=== PATIENT | female | born 1965 | race Caucasian/White ===

== ENCOUNTER 2021-08-08 12:40 | Outpatient (CLI) | payer OTHER, SELFPAY ==
--- NOTE | ~2021-08-08 | DEXA_ITS ---
Bone Density Report Name: Tessa MELCHOR Age: 56 Sex: Female Ethnicity: White Date of : 1965 Indication: postmenopausal; height loss; Referring Provider: TIEN FISCHER Study: Bone densitometry was performed. Exam Date: August 08, 2021 Accession number: [id number] Bone Density: Region BMD T-score Z-score Classification AP Spine (L1-L4) 0.927 -1.1 0.1 Osteopenia Femoral Neck (Left) 0.730 -1.1 0.0 Osteopenia Total Hip (Left) 0.812 -1.1 -0.3 Osteopenia Total Hip Bilateral Avg 0.823 -1.0 -0.3 Osteopenia Femoral Neck (Right) 0.806 -0.4 0.7 Normal Total Hip (Right) 0.832 -0.9 -0.2 Normal World Health Organization criteria for BMD impression classify patients as: Normal (T-score at or above -1.0), Osteopenia (T-score between -1.0 and -2.5), or Osteoporosis (T-score at or below -2.5). 10-year Fracture Risk(1): Major Osteoporotic Fracture 6.3% Hip Fracture 0.3% Reported Risk Factors: [place] (), Neck BMD=0.730, BMI=25.9 (1) FRAX(R) Version 3.08. Fracture probability calculated for an untreated patient. Fracture probability may be lower if the patient has received treatment. Clinical Information Provided by Patient: Has used the following medications: Vitamin D Patient maximum height was 65 Menopause Age: 54 No regular weight bearing exercise Drinks caffeinated beverages Onset of menses at age 12 Number of children 0 Impression: The patient has low bone mass, based on the Total Spine T-score. The patient has an estimated ten-year risk of hip fracture of 0.3% and an estimated ten-year risk of major fracture of 6.3%, based on the WHO FRAX algorithm. Discussion: BONE DENSITY IS LOW AT ONE OR MORE SKELETAL SITES. This patient's lowest T-score is low at one or more skeletal sites. It meets the World Health Organization's (WHO) criteria for ?low bone mass? (T-score between -1.0 and -2.5). The patient's 10-year risk of fracture as calculated by FRAX is less than the threshold where pharmacological therapy is recommended by the National Osteoporosis Foundation (NOF). However, all treatment decisions require clinical judgment and consideration of individual patient factors, including patient preferences, comorbidities, previous drug use, risk factors not captured in the FRAX model (e.g., frailty, falls, vitamin D deficiency, increased bone turnover, interval significant decline in bone density) and possible under or overestimation of fracture risk by FRAX. The patient should follow a healthful lifestyle (good nutrition with adequate calcium and vitamin D, and appropriate weight-bearing exercise). Follow-Up: Consider repeating this study in 2 to 3 years to reassess this patient's status, or sooner if there is some new clinical indication. Reported by: KADY on 08/08/2021 1:05:00 PM.
== END 2021-08-08 12:41 | disposition home or self-care (01) ==
LOC: ANHIMG 12:42
PROVIDERS: PCP Family Medicine; Visit Provider Obstetrics & Gynecology Gynecology
DX: Z78.0 Asymptomatic menopausal state (principal); M85.89 Other specified disorders of bone density and structure, multiple sites
CPT/HCPCS: 77080

== ENCOUNTER → 2022-07-29 13:16 | Outpatient (CLI) | payer BC, SELFPAY ==
--- NOTE | ~2022-07-29 | US_ITS ---
Corrected Report Correction to Ordering Provider 07/30/2022 CAMPBELL This report was recreated on 07/30/2022. Original report was signed by Narciso Bah M.D. on 07/29/2022 13:57 CDT. EXAMINATION: US pelvic complete w TV DATE: 07/29/2022 13:47 INDICATION: Postmenopausal bleeding Comparison:No prior studies for comparison. TECHNIQUE: Multiple transabdominal and endovaginal sonographic images of the pelvis performed. FINDINGS: The uterus measures 5.9 x 3 x 3.7 cm. The endometrial complex measures 12 mm. The right ovary measures 2 x 1.4 x 1.4 cm and the left ovary measures 1.9 x 1.2 x 1.2 cm. There are small follicles in each ovary. Normal doppler signal in both ovaries. There is no free fluid in the pelvis. There are no abnormal masses seen on either side. IMPRESSION: 1. Thickened endomtrial complex. The differential diagnosis includes endometrial hyperplasia, polyp and carcinoma. Biopsy is recommended. Reviewed, dictated and finalized at location A. MTDD IMPRESSION: 1. Thickened endomtrial complex. The differential diagnosis includes endometria l hyperplasia, polyp and carcinoma. Biopsy is recommended.
== END ==
PROVIDERS: Visit Provider Obstetrics & Gynecology Gynecology
DX: N95.0 Postmenopausal bleeding (principal)
CPT/HCPCS: 76830; 76856

== ENCOUNTER 2022-08-14 15:41 | Outpatient (CLI) | payer BC, SELFPAY | END 2022-08-14 15:42 | disposition home or self-care (01) | PROVIDERS: Visit Provider Obstetrics & Gynecology Gynecology | DX: E55.9 Vitamin D deficiency, unspecified (principal) | CPT/HCPCS: 36415; 82306 ==

== ENCOUNTER 2022-11-03 00:29 | Day surgery (SDC) | payer BC, SELFPAY ==
[2022-10-17 09:53] VITALS: BMI 25.7
--- NOTE | 2022-10-17 09:58 | PC.NURSE ---
Report to the Outpatient Waiting Room, entrance under the green pavilion located off [facility], at time 1145 on date 11/03/22. Planned Procedure Time: 1345. Time changes happen often and if your time is changed the preop area will call you the afternoon before. - You and your visitor will be asked to self-screen and do not enter if you have any COVID symptoms. - Only one visitor is requested with a max of two and NO children visitors are allowed at this time. - The patient visitor may be requested to leave or wait in car when not with patient due to distancing restrictions. - A mask is REQUIRED within the hospital. Patients may have clear liquids (water, carbonated beverages, clear teas, apple juice) until 3 hours prior to surgery with a maximum of 20 ounces. - No food from midnight until time of surgery Take the following medications with a SIP of water the morning of surgery: NONE Medications to discontinue per physician: VITAMINS/SUPPLEMENTS Date to take last dose: 10/30/22 Please no make-up, nail latvian, hairspray, perfume, deodorant, or body powder the day of surgery. No jewelry (including any body piercings) or valuables the day of surgery, leave them at home. Please take a shower or bath the night before, or the morning of, surgery with an antibacterial soap. Wear comfortable, loose fitting clothing. - Jewelry must be removed prior to entering the operating room. Rings and piercings that are not removed may be cut off. - The hospital will not accept responsibility for valuables. - Please leave all valuables, including medications, at home the day of surgery. If you are going home after surgery, a licensed city driver must drive you home. - NO public transportation without another adult if you receive anesthesia. - We recommend that an adult stay with you for 24 hours following discharge. - We also recommend that you do not drive, make important decision, drink alcoholic beverages, or take any drugs that were not prescribed by your health care provider for at least 24 hours after your discharge time. Follow any additional instructions given to you from your surgeon. If you or anyone in your household have experienced Covid symptoms in the past week, please notify your surgeon or the nurse liaison at the phone number below for possible testing. Telephone instructions given to PT Aretha MELCHOR and asked if any additional questions and then verbalized understanding. Patient advised to call surgeon office or pre surgery nurse liaison [phone] if any additional questions.
--- NOTE | 2022-11-03 08:27 | P.HP_ITS ---
History of Present Illness History of Present Illness Consent: Risks, benefits, and alternatives have been discussed and questions answered. Patient agrees to proceed with procedure. Chief complaint: endometrial polyp Narrative: Tessa Quan is a 57 year old female postmenopausal. Patient underwent hysteroscopy in the office with findings of a large endometrial polyp. The polyp was unable to be removed in the office. Endometrial biopsy was benign. Is recommended to proceed with D&C hysteroscopy with resection of polyp. The risks of infection, bleeding, perforation, fluid imbalance, and possible pathology are reviewed. The patient voices understanding and agrees to proceed. Review of Systems Review of Systems: not repeated day of surgery; patient states no changes in status [facility] Past Medical History Medical History (Updated 11/03/22 @ 08:31 by Bethany Eng MD) Bulimia on and off throughout are alive Surgical History Surgical History (Updated 11/03/22 @ 08:31 by Bethany Eng MD) Breast implant status 1994 2017 History of hysteroscopy see history of present illness Spine injury 2000 Family History Family History Father Family history of type 2 diabetes mellitus Mother Family history of congestive heart failure Social History Social History Smoking status: Never smoker Second hand tobacco smoke exposure: No Alcohol intake: current Drinks per week: 2 Substance use: never Substance use type: does not use Living arrangements: with family Gender identity (if verbalized by the patient): Female Sexual Orientation (if Verbalized by the Patient): Straight or Heterosexual Spiritual care concerns: No Agree to blood products: Yes Meds Home Medications and Allergies Home Medications Medication Instructions Recorded Confirmed Type black cohosh 20 mg tablet 60 mg PO DAILY 08/10/20 10/17/22 History evening primrose oil 500 mg capsule 1,000 mg PO DAILY 08/10/20 10/17/22 History Allergies Allergy/AdvReac Type Severity Reaction Status Date / Time Sulfa (Sulfonamide Allergy Unknown Rash Verified 10/17/22 09:52 Antibiotics) Exam Const: General: healthy appearing and alert Orientation/consciousness: patient oriented x3 Resp: Effort & Inspection: normal respiratory effort GI: GI Palp: Yes Soft to palpation, No Tenderness to palpation present (GI) and No Palpable mass present : External Female Exam: normal external appearance Speculum Exam - Vagina: normal appearance of the vagina and normal vaginal discharge Speculum Exam - Cervix: normal appearance of the cervix Bimanual exam- vagina & uterus: uterine size normal and consistency normal Bimanual Exam- Adnexa, other: normal adnexae and No adnexal tenderness Neuro: General: patient oriented x3 Assessment and Plan Assessment and plan (1) Postmenopausal bleeding: Code(s): N95.0 - Postmenopausal bleeding Status: Acute Assessment and Plan: plan to proceed with hysteroscopy D&C and resection polyp
--- NOTE | 2022-11-03 08:27 | WPDHPUPDATE1 ---
History and Physical Update Update Date/Time: 11/03/22 08:27 History and Physical has been reviewed, including an updated exam of the patient. There are NO changes in the patient's condition. Risks, benefits, and alternatives have been discussed and questions answered. Patient agrees to proceed with procedure.
[2022-11-03 12:08] VITALS: BP 95/68; PULSE 85; RESP 16; TEMP 36.4; O2SAT 100
[2022-11-03] MEDS: LACTATED RINGERS 1,000 ML 30 ML IV CONT (12:13)
[2022-11-03] MEDS: ACETAMINOPHEN 500 MG TABLET 1000 MG PO (12:22)
--- NOTE | 2022-11-03 12:24 | WPDANESEPPF ---
Anes - Initial Pre Proc Eval Procedure: Operation Date: 11/03/22 13:45 Proposed Procedures p Hysteroscopy with Myosure - Bethany Eng MD Date/Time: 11/03/22 12:24 Surgeon: Bethany Eng MD Pre Op Diagnosis: endometrial polyp Patient Data Age: 57 Gender: F Height: 1.65 m Weight: 72.1 kg Last Vital Signs Temp 36.4 C L 11/03/22 12:08 Pulse 85 11/03/22 12:08 Resp 16 11/03/22 12:08 BP 95/68 L 11/03/22 12:08 Pulse Ox 100 11/03/22 12:08 O2 Del Method Room Air 11/03/22 12:08 Allergies Allergy/AdvReac Type Severity Reaction Status Date / Time Sulfa (Sulfonamide Allergy Unknown Rash Verified 11/03/22 12:03 Antibiotics) Home Medications Medication Instructions Recorded Confirmed Type black cohosh 20 mg tablet 60 mg PO DAILY 08/10/20 11/03/22 History evening primrose oil 500 mg capsule 1,000 mg PO DAILY 08/10/20 11/03/22 History Patient hx anesthesia problems: none Family hx anesthesia problems: none Results Review: All pre-operative results and documents have been reviewed as part of the pre-operative evaluation. [facility] Past Medical History Medical History Bulimia on and off throughout are alive Surgical History Surgical History Breast implant status 1994 2017 History of hysteroscopy see history of present illness Spine injury 2000 Family History Family History Father Family history of type 2 diabetes mellitus Mother Family history of congestive heart failure Social History Social History Smoking status: Never smoker Second hand tobacco smoke exposure: No Alcohol intake: current Drinks per week: 2 Substance use: never Substance use type: does not use Living arrangements: with family Gender identity (if verbalized by the patient): Female Sexual Orientation (if Verbalized by the Patient): Straight or Heterosexual Spiritual care concerns: No Agree to blood products: Yes Anes - Eval Final PreProcedure Day of Procedure 11/03/22 12:24 Patient weight: overweight Heart: regular rate and rhythm Lungs: clear to auscultation Airway: Mallampati scale class II Neurological: alert and oriented Last oral intake: >/= 8 hours ASA classification: II Emergent: no Anesthetic plan: proceed Anesthesia type and monitoring: general GIVS and standard monitoring Results Review: All pre-operative results and documents have been reviewed as part of the pre-operative evaluation. Informed Consent: The patient's anesthetic plan and its attendant risks and benefits were discussed with the patient/family/POA. Questions were solicited and answers provided to the satisfaction of the patient/family/POA.
[2022-11-03] MEDS: LIDOCAINE HCL 1% PF 30 ML VIAL 10 ML INFILTRATE (12:57)
[2022-11-03 13:10] VITALS: BP 109/67; PULSE 72; RESP 14; O2SAT 98
[2022-11-03 13:40] VITALS: BP 120/76; PULSE 70
[2022-11-03] MEDS: oxyCODONE HCL (*CRX) 5 MG TAB IR PO (14:06)
[2022-11-03 14:10] VITALS: BP 114/67; PULSE 64; RESP 18
[2022-11-03 14:25] VITALS: BP 103/62; PULSE 71; RESP 18
--- NOTE | 2022-11-10 08:08 | P.OP_ITS ---
Procedure Note - Detailed Date of Procedure 11/03/22 Pre-op Diagnosis endometrial polyp with postmenopausal bleeding Post-op Diagnosis Same Procedure Performed D&C hysteroscopy with resection polyp Surgeon Bethany Eng MD Anesthesia MAC and Local Findings large endometrial polyp with background atrophic endometrium Description of Procedure The patient was taken to the operating room and placed under anesthesia in the dorsal lithotomy position. She was prepped and draped in the usual sterile fashion. Anchorage speculum was placed in the vagina and the cervix grasped on the anterior lip with a tenaculum. The uterus is sounded and the hysteroscope placed. The above-stated findings were noted. The Aveta resection device is placed through the hysteroscope. The polyp was removed tired he under direct visualization. The hysteroscope was removed and the sharp curette used to curette the endometrium until a good uterine cry is noted in all areas. Minimal if any material is obtained consistent with the atrophic appearance. All instruments are removed. Sponge, needle, and instrument counts are correct per the OR staff. Patient was taken to recovery in stable condition. Estimated Blood Loss 5 Drains No Packing No Pathology Yes ( Endometrial curettings and shavings) Complications No immediate complications Condition Stable Disposition PACU
== END 2022-11-03 14:43 | disposition home or self-care (01) ==
PROVIDERS: Visit Provider Obstetrics & Gynecology Gynecology
PROC: 0U5B8ZZ Destruction of Endometrium, Via Natural or Artificial Opening Endoscopic (ICD-10-PCS; CPT 58563; principal; 2022-11-03 13:45)
DX: N95.0 Postmenopausal bleeding (principal); N84.0 Polyp of corpus uteri
CPT/HCPCS: 58558; 88305; A9270; J2704; J3010; J7120

== ENCOUNTER 2023-04-25 08:21 | Outpatient (CLI) | payer OTHER, SELFPAY ==
[2023-04-25 09:05] LABS: Hematocrit 45.9 % (37.0-47.0); Hemoglobin 15.3 g/dL (12.0-15.0); Mean Corpuscular HGB Conc 33.3 g/dl (32-36); Mean Corpuscular Hemoglobin 30.9 pg (26-34); Mean Corpuscular Volume 92.7 fl (80-100); Mean Platelet Volume 9.7 fl (7.4-10.4); Platelet Count Result 216 k/mm3 (150-375); Red Blood Count 4.95 M/mm3 (4.2-5.4); Red Cell Distribution Width 13.3 % (11.5-14.5); White Blood Count 4.2 K/mm3 (4.5-10.0)
[2023-04-25 09:12] LABS: Alanine Aminotransferase 30 U/L (6-35); Albumin Level 3.7 g/dL (3.5-5.1); Alkaline Phosphatase 71 U/L (38-126); Anion Gap 4 mmol/L (8-16); Aspartate Amino Transferase 30 U/L (14-36); Bilirubin,Total 0.7 mg/dL (0.2-1.3); Blood Urea Nitrogen 20 mg/dL (7-17); Calcium 8.8 mg/dL (8.4-10.2); Carbon Dioxide 29 mmol/L (22-30); Chloride 108 mmol/L (98-107); Cholesterol 238 mg/dL (0-200); Estimated Glomerular Filt Rate > 60; Glucose 88 mg/dL (65-110); HDL Direct 75 mg/dL; Sodium 141 mmol/L (137-145); Triglycerides 78 mg/dL (<150)
[2023-04-25 09:22] LABS: LDL Cholesterol Direct 108 mg/dL
[2023-04-25 09:30] LABS: Vitamin D 25 Hydroxy 74.9 ng/mL
[2023-04-25 10:03] LABS: Appearance Urine Clear (Clear); Bilirubin Urine Negative (Negative); Blood Urine Negative (Negative); Color Urine Yellow (Yellow); Glucose Urine UA Negative (Negative); Ketones Urine Negative (Negative); Leukocyte Esterase Ur Negative LEU/UL (NEGATIVE); Nitrate Urine Negative (Negative); Protein Urine Negative (Negative); Specific Grav Ur 1.014 (1.001-1.035); Urobilinogen Urine 0.2 mg/dL (<2.0); pH Urine 6.5 (5.0-9.0)
[2023-04-25 10:07] LABS: Add Urine Microscopic? NO
== END 2023-04-25 08:22 | disposition home or self-care (01) ==
PROVIDERS: PCP Family Medicine; Referring Provider Obstetrics & Gynecology Gynecology; Visit Provider Family Medicine
DX: Z00.00 Encounter for general adult medical examination without abnormal findings (principal); E78.5 Hyperlipidemia, unspecified; E55.9 Vitamin D deficiency, unspecified
CPT/HCPCS: 36415; 80053; 80061; 81003; 82306; 84443; 85027

== ENCOUNTER 2023-10-01 13:59 | Outpatient (CLI) | payer OTHER, SELFPAY ==
--- NOTE | ~2023-10-01 | DEXA_ITS ---
Bone Density Report Name: IGNACIO MELCHOR Age: 58 Sex: Female Ethnicity: White Date of : 1965 Indication: osteopenia; height loss; postmenopausal Referring Provider: TIEN FISCHER Study: Bone densitometry was performed. Exam Date: October 01, 2023 Accession number: [id number] Bone Density: Region BMD T-score Z-score Classification AP Spine(L1-L4) 0.930 -1.1 0.2 Osteopenia Femoral Neck (Left) 0.723 -1.1 0.1 Osteopenia Total Hip (Left) 0.809 -1.1 -0.2 Osteopenia Femoral Neck (Right) 0.768 -0.7 0.5 Normal Total Hip (Right) 0.839 -0.8 0.0 Normal Total Hip Mean 0.824 -1.0 -0.1 Normal World Health Organization criteria for BMD impression classify patients as: Normal (T-score at or above -1.0), Osteopenia (T-score between -1.0 and -2.5), or Osteoporosis (T-score at or below -2.5). 10-year Fracture Risk(1): Major Osteoporotic Fracture 6.8% Hip Fracture 0.4% Reported Risk Factors: [place] (), Neck BMD=0.723, BMI=25.9 (1) FRAX(R) Version 3.08. Fracture probability calculated for an untreated patient. Fracture probability may be lower if the patient has received treatment. Previous Exams: Region Exam Age BMD T-score BMD Change BMD Change Date g/cm2 vs Baseline vs Previous AP Spine (L1-L4) 10/01/2023 58 0.930 -1.1 0.003 (0.3%) 0.003 (0.3%) 08/08/2021 56 0.927 -1.1 Total Hip(Left) 10/01/2023 58 0.809 -1.1 -0.003 (-0.3%) -0.003 (-0.3%) 08/08/2021 56 0.812 -1.1 Total Hip(Right) 10/01/2023 58 0.839 -0.8 0.006 (0.8%) 0.006 (0.8%) 08/08/2021 56 0.832 -0.9 *Denotes significance at 95% confidence level, LSC for AP Spine = 0.022 g/cm2, LSC for Total Hip = 0.027 g/cm2 Clinical Information Provided by Patient: Has used the following medications: Calcium Patient maximum height was 65 Menopause Age: 54 Does not regularly consume dairy products Drinks caffeinated beverages Onset of menses at age 11 Number of children 0 Impression: The patient has low bone mass, based on the Total Spine T-score. The patient has an estimated ten-year risk of hip fracture of 0.4% and an estimated ten-year risk of major fracture of 6.8%, based on the WHO FRAX algorithm. No significant bone loss was observed. Discussion: BONE DENSITY IS LOW AT ONE OR MORE SKELETAL SITES. This patient's lowest T-score is low at one or more skeletal sites. It meets the World Health Organization's (WHO) criteria for ?low lalo
== END 2023-10-01 14:00 | disposition home or self-care (01) ==
PROVIDERS: PCP Family Medicine; Visit Provider Obstetrics & Gynecology Gynecology
DX: M85.89 Other specified disorders of bone density and structure, multiple sites (principal)
CPT/HCPCS: 77080

== ENCOUNTER 2024-05-13 07:21 | Outpatient (CLI) | payer OTHER, SELFPAY ==
[2024-05-13 08:24] LABS: Alanine Aminotransferase 32 U/L (6-35); Albumin Level 3.7 g/dL (3.5-5.1); Alkaline Phosphatase 82 U/L (38-126); Anion Gap 6 mmol/L (4-12); Aspartate Amino Transferase 36 U/L (14-36); Bilirubin,Total 0.5 mg/dL (0.2-1.3); Blood Urea Nitrogen 18 mg/dL (7-17); Calcium 8.7 mg/dL (8.4-10.2); Carbon Dioxide 29 mmol/L (22-30); Chloride 104 mmol/L (98-107); Cholesterol 221 mg/dL (0-200); Estimated Glomerular Filt Rate > 60; Glucose 90 mg/dL (65-110); HDL Direct 94 mg/dL; Hematocrit 44.9 % (37.0-47.0); Hemoglobin 14.6 g/dL (12.0-15.0); Mean Corpuscular HGB Conc 32.5 g/dl (32-36); Mean Corpuscular Hemoglobin 31.1 pg (26-34); Mean Corpuscular Volume 95.5 fl (80-100); Mean Platelet Volume 9.9 fl (7.4-10.4); Platelet Count Result 209 k/mm3 (150-375); Potassium 4.3 mmol/L (3.4-5.0); Red Cell Distribution Width 13.2 % (11.5-14.5); Sodium 139 mmol/L (137-145); Triglycerides 55 mg/dL (<150); White Blood Count 4.5 K/mm3 (4.5-10.0)
[2024-05-13 08:35] LABS: LDL Cholesterol Direct 103 mg/dL
[2024-05-13 09:54] LABS: Vitamin D 25 Hydroxy 57.5 ng/mL
[2024-05-13 13:48] LABS: Appearance Urine Clear (Clear); Bilirubin Urine Negative (Negative); Blood Urine Negative (Negative); Color Urine Yellow (Yellow); Glucose Urine UA Negative (Negative); Ketones Urine Negative (Negative); Leukocyte Esterase Ur Negative LEU/UL (Negative); Nitrate Urine Negative (Negative); Protein Urine Negative (Negative); Specific Grav Ur 1.011 (1.001-1.035); Urobilinogen Urine 0.2 mg/dL (<2.0); pH Urine 6.5 (5.0-9.0)
[2024-05-13 13:53] LABS: Add Urine Microscopic? NO
== END 2024-05-13 07:22 | disposition home or self-care (01) ==
PROVIDERS: PCP Family Medicine; Referring Provider Obstetrics & Gynecology Gynecology; Visit Provider Family Medicine
DX: Z00.00 Encounter for general adult medical examination without abnormal findings (principal); E55.9 Vitamin D deficiency, unspecified
CPT/HCPCS: 36415; 80053; 80061; 81003; 82306; 84443; 85027

== ENCOUNTER 2024-08-20 05:23 | Emergency (ER) | payer OTHER, SELFPAY ==
--- NOTE | ~2024-08-20 | CT_ITS ---
EXAMINATION: CTA brain carotid DATE: 08/20/2024 06:48 INDICATION: Diplopia. TECHNIQUE: Computed tomographic angiography (CTA) of the head was performed without and with 100 mL O [id number] intravenous contrast. CTA of the neck was performed with intravenous contrast. Automated exposure control and iterative reconstruction technique were employed. The dose-length product was 1 710.82 mGy-cm. Maximum intensity projection and volume rendered 3D-reconstructions were created by ramos jha technologist on a separate workstation. COMPARISON: None. FINDINGS: HEAD CTA: There is no intracranial hemorrhage, acute infarction, or abnormal intracranial mass lesion . The ventricles are normal in size. There is mild mucosal thickening in the ethmoid sinuses. The mas toid air cells are normal. The orbits are normal. Right vertebral artery is dominant. There is no sig nificant stenosis of basilar artery or the posterior cerebral arteries. The posterior communicating a rteries are normal. There is no significant stenosis of the intracranial internal carotid arteries or anterior or middle cerebral arteries. Anterior communicating artery is normal. There is no aneurysm. NECK CTA: There are nodules in the thyroid measuring up to 12 mm, likely not clinically significant. There are no pathologically enlarged lymph nodes. There is no significant stenosis of the vertebral a rteries. There is no significant plaque in the proximal internal carotid. There is 0% stenosis of the proximal right internal carotid artery relative to normal distal artery lumen diameter (NASCET crite nikki). There is 0% stenosis of the proximal left internal carotid artery relative to normal distal art chelsie lumen diameter. There is severe cervical spondylosis. IMPRESSION: 1. Normal brain. No aneurysm or significant intracranial arterial stenosis. 2. 0% stenosis of the proximal internal carotid arteries relative to normal distal artery lumen diame ters (NASCET criteria). Reviewed, dictated and finalized at location A. IMPRESSION: 1. Normal brain. No aneurysm or significant intracranial arterial stenosis. 2. 0% stenosis of the proximal internal carotid arteries relative to normal dis chiquis artery lumen diameters (NASCET criteria).
[2024-08-20 05:33] VITALS: BP 110/69; PULSE 67; RESP 14; TEMP 36.4; O2SAT 98
--- NOTE | 2024-08-20 05:51 | ECG_ITS ---
Test Date: 2024-08-20 06:06:07 Measurements Intervals [place] Rate: 61 P: 29 WA: 123 QRS: 12 QRSD: 87 T: 35 QT: 411 QTc: 417 Interpretive Statements SINUS RHYTHM LOW QRS VOLTAGE IN PRECORDIAL LEADS [QRS DEFLECTION < 1.0 mV IN CHEST LEADS] NONSPECIFIC T-WAVE ABNORMALITY ABNORMAL ECG No previous ECG available for comparison Electronically Signed On 08-20-2024 13:14:35 CDT by Migue Jernigan M.D.
[2024-08-20 06:24] LABS: Add Urine Microscopic? YES; Appearance Urine Turbid (Clear); Bacteria Urine 4+ /hpf; Bilirubin Urine Negative (Negative); Blood Urine Negative (Negative); Color Urine Yellow (Yellow); Glucose Urine UA Negative (Negative); Ketones Urine Negative (Negative); Leukocyte Esterase Ur 2+ LEU/UL (Negative); Nitrate Urine Negative (Negative); Non Pathogenic Casts 0-2; Protein Urine Trace mg/dL (Negative); RBC Urine 0-2 /hpf (0-2); Specific Grav Ur 1.016 (1.001-1.035); Squamous Epithelial Cell Urine Many /hpf (Few); Urobilinogen Urine 0.2 mg/dL (<2.0); WBC Urine 21-50 /hpf (0-3)
[2024-08-20 06:25] LABS: Basophils Percent Auto 0.6 % (0.2-1.2); Eosinophils Absolute Auto 0.1 K/mm3 (0-0.3); Hematocrit 46.3 % (37.0-47.0); Hemoglobin 15.5 g/dL (12.0-15.0); Immature Granulocyte Absolute 0.01 K/mm3 (0.00-0.031); Immature Granulocyte Percent A 0.2 % (0-0.5); Lymphocytes Absolute Auto 2.28 K/mm3 (0.9-3.2); Lymphocytes Percent Auto 44.7 % (18.3-44.2); Mean Corpuscular HGB Conc 33.5 g/dl (32-36); Mean Corpuscular Volume 95.5 fl (80-100); Mean Platelet Volume 9.7 fl (7.4-10.4); Monocytes Absolute Auto 0.4 K/mm3 (0.1-0.6); Monocytes Percent Auto 7.3 % (2.6-8.5); Neutrophils Absolute Auto 2.3 K/mm3 (1.3-6.7); Neutrophils Percent Auto 45.2 % (45.5-73.1); Platelet Count Result 220 k/mm3 (150-375); Red Blood Count 4.85 M/mm3 (4.2-5.4); White Blood Count 5.1 K/mm3 (4.5-10.0)
[2024-08-20 06:29] LABS: Alanine Aminotransferase 43 U/L (6-35); Albumin Level 3.8 g/dL (3.5-5.1); Alkaline Phosphatase 80 U/L (38-126); Anion Gap 7 mmol/L (4-12); Aspartate Amino Transferase 37 U/L (14-36); Bilirubin,Total 0.6 mg/dL (0.2-1.3); Blood Urea Nitrogen 16 mg/dL (7-17); Calcium 8.9 mg/dL (8.4-10.2); Carbon Dioxide 30 mmol/L (22-30); Chloride 105 mmol/L (98-107); Estimated CRCL calculation 67 ml/min; Estimated Glomerular Filt Rate > 60; Glucose 94 mg/dL (65-110); Magnesium 2.2 mg/dL (1.6-2.3); Potassium 4.3 mmol/L (3.4-5.0); Sodium 142 mmol/L (137-145)
--- NOTE | 2024-08-20 06:46 | ED_ITS ---
HPI - General Adult General Chief complaint: Eye Problems <Kamron Chew MD - Last Filed: 08/20/24 06:49> Stated complaint: double vision <Kamron Chew MD - Last Filed: 08/20/24 06:49> Time Seen by Provider: 08/20/24 05:51 <Kamron Chew MD - Last Filed: 08/20/24 06:49> History of Present Illness HPI narrative: Patient 59-year-old female presents emergency department chief complaint of double vision. The patient reports last 36-48 hours she has been having episodes where her vision is double worse whenever she looks to the left a reports that it has improved whenever she looks up down or to the right. The patient reports no trauma denies fever denies headache reports that she has had no weakness in arms or legs denies dysarthria patient reports no prior history of CVA no prior history of episodes like this denies rash <Kamron Chew MD - Last Filed: 08/20/24 06:49> Related Data Home medications: Home Medications Medication Instructions Recorded Confirmed black cohosh 20 mg tablet 60 mg PO DAILY 08/10/20 04/25/24 evening primrose oil 500 mg capsule 1,000 mg PO DAILY 08/10/20 04/25/24 <Kamron Chew MD - Last Filed: 08/20/24 06:49> Allergies/adverse reactions: Allergies Allergy/AdvReac Type Severity Reaction Status Date / Time Sulfa (Sulfonamide Allergy Unknown Rash Verified 08/20/24 05:24 Antibiotics) <Kamron Chew MD - Last Filed: 08/20/24 06:49> Review of Systems Review of Systems: A 10 system review of systems was completed on the patient and is negative except for what is stated in the HPI. Nursing and ancillary documentation was reviewed. <Kamron Chew MD - Last Filed: 08/20/24 06:49> PMFSH Past Medical History Medical History: Medical History Bulimia on and off throughout are alive Osteopenia <Kamron Chew MD - Last Filed: 08/20/24 06:49> Surgical History Surgical History: Surgical History Breast implant status 1994 2017 History of hysteroscopy see history of present illness Spine injury w/ lumbar fusion, L5 discectomy 2000 <Kamron Chew MD - Last Filed: 08/20/24 06:49> Family History Family History: Family History Father Family history of type 2 diabetes mellitus Malignant neoplasm of prostate Mother Family history of congestive heart failure <Kamron Chew MD - Last Filed: 08/20/24 06:49> Social History Social History: Social History Smoking status: Never smoker Second hand tobacco smoke exposure: No Alcohol intake: never Substance use: never Substance use type: does not use Living arrangements: with family Occupation/Education: occupation Gender identity (if verbalized by the patient): Female Sexual Orientation (if Verbalized by the Patient): Straight or Heterosexual Spiritual care concerns: No Agree to blood products: Yes <Kamron Chew MD - Last Filed: 08/20/24 06:49> Exam Narrative: GENERAL: Well-appearing, well-nourished, and in no acute distress. HEAD: Normocephalic, atraumatic. EYES: PERRLA and EOMI. Intra-ocular pressure right 21 intra-ocular pressure left 16 double vision exacerbated by leftward eye gaze ENT: Nares clear, no rhinorrhea or epistaxis. Mucous membranes moist. NECK: Supple. CHEST: Clear to auscultation. No respiratory distress. HEART: Regular rate and rhythm. No murmur heard. Normal peripheral pulses. ABDOMEN: Soft, nontender, nondistended, normal active bowel sounds. EXTREMITIES: Normal range of motion. No edema. SKIN: Warm, dry, no rash. NEURO: No focal deficits. Alert and oriented x3. PSYCH: Normal mood and affect. <Kamron Chew MD - Last Filed: 08/20/24 06:49> Course Course Emergency Course: Patient resting comfortably. I have been and re-evaluate the patient. She is neurologically intact with the exception of double vision when she looks left side. She is in no distress. I have discussed her normal blood work. We have discussed that her urinalysis shows evidence of infection. I have also discussed the CTA of the head and neck. There is no evidence of infarction and no stenosis. Discussed that she still may have a stroke that we cannot see on CT scan I would like to admit her for an MRI and possible stroke evaluation. Patient does not wish stand hospital though she knows it is our recommendation. She would like to call her PCP on Thursday. I have given her strict return 1st cautions and I have recommended that she take baby aspirin daily. <Felix Mack MD - Last Filed: 08/20/24 07:58> Vital Signs Vital signs: Vital Signs Temperature 97.6 F 08/20/24 05:33 Pulse Rate 67 08/20/24 05:33 Respiratory Rate 14 08/20/24 05:33 Blood Pressure 110/69 08/20/24 05:33 Pulse Oximetry 98 08/20/24 05:33 Oxygen Delivery Room Air 08/20/24 05:33 Temperature 97.6 F 08/20/24 05:33 Pulse Rate 67 08/20/24 05:33 Respiratory Rate 14 08/20/24 05:33 Blood Pressure 110/69 08/20/24 05:33 Pulse Oximetry 98 08/20/24 05:33 Oxygen Delivery Room Air 08/20/24 05:33 <Kamron Chew MD - Last Filed: 08/20/24 06:49> Vital Signs Temperature 97.6 F 08/20/24 05:33 Pulse Rate 67 08/20/24 05:33 Respiratory Rate 14 08/20/24 05:33 Blood Pressure 110/69 08/20/24 05:33 Pulse Oximetry 98 08/20/24 05:33 Oxygen Delivery Room Air 08/20/24 05:33 Temperature 97.6 F 08/20/24 05:33 Pulse Rate 67 08/20/24 05:33 Respiratory Rate 14 08/20/24 05:33 Blood Pressure 110/69 08/20/24 05:33 Pulse Oximetry 98 08/20/24 05:33 Oxygen Delivery Room Air 08/20/24 05:33 <Felix Mack MD - Last Filed: 08/20/24 07:58> Medical Decision Making MDM Narrative Medical decision making narrative: Differential diagnosis includes ocular nerve palsy, intracranial hemorrhage, CVA, demyelinating disorder, electrolyte abnormality, acute angle closure glaucoma, The patient has normal intra-ocular pressures CTA head and neck was ordered on the patient laboratory studies were also ordered an EKG was ordered. EKG showed no acute ischemic disease, no evidence of dysrhythmia The laboratory studies did show evidence of urinary tract infection with 21-50 white blood cells in the urine and 4+ bacteria <Kamron Chew MD - Last Filed: 08/20/24 06:49> Vital Signs Vital Signs: Vital Signs Temperature 97.6 F 08/20/24 05:33 Pulse Rate 67 08/20/24 05:33 Respiratory Rate 14 08/20/24 05:33 Blood Pressure 110/69 08/20/24 05:33 Pulse Oximetry 98 08/20/24 05:33 Oxygen Delivery Room Air 08/20/24 05:33 Temperature 97.6 F 08/20/24 05:33 Pulse Rate 67 08/20/24 05:33 Respiratory Rate 14 08/20/24 05:33 Blood Pressure 110/69 08/20/24 05:33 Pulse Oximetry 98 08/20/24 05:33 Oxygen Delivery Room Air 08/20/24 05:33 <Kamron Chew MD - Last Filed: 08/20/24 06:49> Vital Signs Temperature 97.6 F 08/20/24 05:33 Pulse Rate 67 08/20/24 05:33 Respiratory Rate 14 08/20/24 05:33 Blood Pressure 110/69 08/20/24 05:33 Pulse Oximetry 98 08/20/24 05:33 Oxygen Delivery Room Air 08/20/24 05:33 Temperature 97.6 F 08/20/24 05:33 Pulse Rate 67 08/20/24 05:33 Respiratory Rate 14 08/20/24 05:33 Blood Pressure 110/69 08/20/24 05:33 Pulse Oximetry 98 08/20/24 05:33 Oxygen Delivery Room Air 08/20/24 05:33 <Felix Mack MD - Last Filed: 08/20/24 07:58> Lab Data Result diagrams: 08/20/24 06:10 08/20/24 06:10 <Kamron Chew MD - Last Filed: 08/20/24 06:49> Labs: Lab Results 08/20/24 Range/Units 06:10 WBC 5.1 (4.5-10.0) K/mm3 RBC 4.85 (4.2-5.4) M/mm3 Hgb 15.5 H (12.0-15.0) g/dL Hct 46.3 (37.0-47.0) % MCV 95.5 (80-100) fl MCH 32.0 (26-34) pg MCHC 33.5 (32-36) g/dl RDW 13.0 (11.5-14.5) % Plt Count 220 (150-375) k/mm3 MPV 9.7 (7.4-10.4) fl Immature Gran % (Auto) 0.2 (0-0.5) % Neut % (Auto) 45.2 L (45.5-73.1) % Lymph % (Auto) 44.7 H (18.3-44.2) % [place] % (Auto) 7.3 (2.6-8.5) % Eos % (Auto) 2.0 (0-4.4) % Baso % (Auto) 0.6 (0.2-1.2) % Lymph # (Auto) 2.28 (0.9-3.2) K/mm3 [place] # (Auto) 0.4 (0.1-0.6) K/mm3 Eos # (Auto) 0.1 (0-0.3) K/mm3 Baso # (Auto) 0.0 (0.0-0.1) K/mm3 Abs Immat Gran (auto) 0.01 (0.00-0.031) K/mm3 Absolute Neuts (auto) 2.3 (1.3-6.7) K/mm3 Absolute Nucleated RBC 0.000 (0.0-0.012) K/mm3 Nucleated RBC % 0.0 (0.0-0.2) % Sodium 142 (137-145) mmol/L Potassium 4.3 (3.4-5.0) mmol/L Chloride 105 (98-107) mmol/L Carbon Dioxide 30 (22-30) mmol/L Anion Gap 7 (4-12) mmol/L BUN 16 (7-17) mg/dL Creatinine 0.80 (0.7-1.0) mg/dL Estim Creat Clear Calc 67 ml/min Estimated GFR > 60 (59 - ) Glucose 94 (65-110) mg/dL Calcium 8.9 (8.4-10.2) mg/dL Magnesium 2.2 (1.6-2.3) mg/dL Total Bilirubin 0.6 (0.2-1.3) mg/dL AST 37 H (14-36) U/L ALT 43 H (6-35) U/L Alkaline Phosphatase 80 (38-126) U/L Troponin I Pending Total Protein 7.0 (6.3-8.2) g/dL Albumin 3.8 (3.5-5.1) g/dL Urine Color Yellow (Yellow) Urine Appearance Turbid H (Clear) Urine pH 7.0 (5.0-9.0) Ur Specific [place] 1.016 (1.001-1.035) Urine Protein Trace (Negative) mg/dL Urine Glucose (UA) Negative (Negative) mg/dL Urine Ketones Negative (Negative) mg/dL Ur Blood (Man) Negative (Negative) Urine Nitrate Negative (Negative) Urine Bilirubin Negative (Negative) Urine Urobilinogen 0.2 (<2.0) mg/dL Leukocyte Esterase Rfl 2+ H (Negative) [place]/UL Urine RBC 0-2 (0-2) /hpf Urine WBC 21-50 H (0-3) /hpf Ur Squamous Epith Cells Many H (Few) /hpf Urine Bacteria 4+ H /hpf Urine Casts 0-2 <Kamron Chew MD - Last Filed: 08/20/24 06:49> Lab Results 08/20/24 Range/Units 06:10 WBC 5.1 (4.5-10.0) K/mm3 RBC 4.85 (4.2-5.4) M/mm3 Hgb 15.5 H (12.0-15.0) g/dL Hct 46.3 (37.0-47.0) % MCV 95.5 (80-100) fl MCH 32.0 (26-34) pg MCHC 33.5 (32-36) g/dl RDW 13.0 (11.5-14.5) % Plt Count 220 (150-375) k/mm3 MPV 9.7 (7.4-10.4) fl Immature Gran % (Auto) 0.2 (0-0.5) % Neut % (Auto) 45.2 L (45.5-73.1) % Lymph % (Auto) 44.7 H (18.3-44.2) % [place] % (Auto) 7.3 (2.6-8.5) % Eos % (Auto) 2.0 (0-4.4) % Baso % (Auto) 0.6 (0.2-1.2) % Lymph # (Auto) 2.28 (0.9-3.2) K/mm3 [place] # (Auto) 0.4 (0.1-0.6) K/mm3 Eos # (Auto) 0.1 (0-0.3) K/mm3 Baso # (Auto) 0.0 (0.0-0.1) K/mm3 Abs Immat Gran (auto) 0.01 (0.00-0.031) K/mm3 Absolute Neuts (auto) 2.3 (1.3-6.7) K/mm3 Absolute Nucleated RBC 0.000 (0.0-0.012) K/mm3 Nucleated RBC % 0.0 (0.0-0.2) % Sodium 142 (137-145) mmol/L Potassium 4.3 (3.4-5.0) mmol/L Chloride 105 (98-107) mmol/L Carbon Dioxide 30 (22-30) mmol/L Anion Gap 7 (4-12) mmol/L BUN 16 (7-17) mg/dL Creatinine 0.80 (0.7-1.0) mg/dL Estim Creat Clear Calc 67 ml/min Estimated GFR > 60 (59 - ) Glucose 94 (65-110) mg/dL Calcium 8.9 (8.4-10.2) mg/dL Magnesium 2.2 (1.6-2.3) mg/dL Total Bilirubin 0.6 (0.2-1.3) mg/dL AST 37 H (14-36) U/L ALT 43 H (6-35) U/L Alkaline Phosphatase 80 (38-126) U/L Troponin I Pending Total Protein 7.0 (6.3-8.2) g/dL Albumin 3.8 (3.5-5.1) g/dL Urine Color Yellow (Yellow) Urine Appearance Turbid H (Clear) Urine pH 7.0 (5.0-9.0) Ur Specific [place] 1.016 (1.001-1.035) Urine Protein Trace (Negative) mg/dL Urine Glucose (UA) Negative (Negative) mg/dL Urine Ketones Negative (Negative) mg/dL Ur Blood (Man) Negative (Negative) Urine Nitrate Negative (Negative) Urine Bilirubin Negative (Negative) Urine Urobilinogen 0.2 (<2.0) mg/dL Leukocyte Esterase Rfl 2+ H (Negative) [place]/UL Urine RBC 0-2 (0-2) /hpf Urine WBC 21-50 H (0-3) /hpf Ur Squamous Epith Cells Many H (Few) /hpf Urine Bacteria 4+ H /hpf Urine Casts 0-2 <Felix Mack MD - Last Filed: 08/20/24 07:58> Discharge Plan Discharge Clinical Impression: Diplopia <Kamron Chew MD - Last Filed: 08/20/24 06:49> Patient Disposition: Home, Self-Care <Kamron Chew MD - Last Filed: 08/20/24 06:49> Condition: Stable <Kamron Chew MD - Last Filed: 08/20/24 06:49> Instructions: Diplopia (ED) <Kamron Chew MD - Last Filed: 08/20/24 06:49> Additional Instructions: It was recommended that he be admitted to the hospital to evaluate your brain for possible stroke with an MRI. If you change your mind please return to the ER. Additionally return to the ER if you develop new symptoms such as slurred speech, facial weakness, weakness in arm or leg, or you develop any additional concerns. It is recommended you take aspirin 81 mg daily into the can be seen by your primary care doctor to discuss a treatment plan. Additionally you were found to have a mild urinary tract infection for which you will be given antibiotics. <Kamron Chew MD - Last Filed: 08/20/24 06:49> Prescriptions: New aspirin 81 mg tablet,delayed release (DR/EC) 81 mg PO DAILY Qty: 14 0RF cephalexin 500 mg capsule 500 mg PO Q12H Qty: 10 0RF No Action black cohosh 20 mg tablet 60 mg PO DAILY evening primrose oil 500 mg capsule 1,000 mg PO DAILY Rx Instructions: give with meal/snack <Kamron Chew MD - Last Filed: 08/20/24 06:49> Follow-up/Referrals: Gallo Santoyo MD [Primary Care Provider] - 3 Days <Kamron Chew MD - Last Filed: 08/20/24 06:49>
[2024-08-20 07:53] LABS: Troponin I < 0.012 ng/mL (0.000-0.034)
[2024-08-20 08:02] VITALS: BP 112/74; PULSE 70; RESP 18; TEMP 36.6; O2SAT 98
== END 2024-08-20 08:04 | disposition home or self-care (01) ==
PROVIDERS: Emergency Provider Emergency Medicine; PCP Family Medicine
DX: H53.2 Diplopia (principal); N39.0 Urinary tract infection, site not specified; M85.80 Other specified disorders of bone density and structure, unspecified site; Z98.1 Arthrodesis status
CPT/HCPCS: 36415; 70496; 70498; 80053; 81001; 83735; 84484; 85025; 87086; 93005; 99284; Q9967

== ENCOUNTER 2024-09-09 11:31 | Outpatient (CLI) | payer OTHER, SELFPAY ==
--- NOTE | ~2024-09-09 | MR_ITS ---
EXAMINATION: MR brain/brain stem wo/w con DATE: 09/09/2024 12:05 INDICATION: Diplopia. TECHNIQUE: Magnetic resonance imaging (MRI) of the brain and brainstem was performed without and with 15 mL MultiHance intravenous contrast. COMPARISON: Head CT 08/20/2024 FINDINGS: There are scattered areas of nonspecific increased T2-weighted signal intensity in the cere bral white matter, which is within normal limits for the patient's age. There is no intracranial hemo rrhage, acute infarction, or abnormal intracranial mass lesion. The ventricles are normal in size. Th e orbits are normal. The paranasal sinuses are clear. The mastoid air cells are normal. IMPRESSION: 1. Normal aging brain. Reviewed, dictated and finalized at location A. R ADVISER IMPRESSION: 1. Normal aging brain.
== END 2024-09-09 11:32 | disposition home or self-care (01) ==
LOC: MICIMG 11:32
PROVIDERS: PCP Family Medicine; Visit Provider Family Medicine
DX: H53.2 Diplopia (principal)
CPT/HCPCS: 70553; A9577

== ENCOUNTER 2024-09-18 10:39 | Emergency (ER) | payer OTHER, SELFPAY ==
[2024-09-18 10:41] VITALS: BP 120/77; PULSE 77; RESP 14; TEMP 36.5; O2SAT 97
--- NOTE | 2024-09-18 12:05 | ED.GENADULT ---
HPI - General Adult General Chief complaint: Eye Problems Stated complaint: swelling and redness R eye Time Seen by Provider: 09/18/24 11:13 History of Present Illness HPI narrative: Patient is a 59-year-old female who presents ER with concerns of right facial swelling with and rash. Ongoing intermittently over last couple weeks. Has had multiple problems since having diplopia last month. She has had an MRI that showed no acute lesions. Her scientific programmer analyst felt she has a nerve palsy from a viral syndrome. She did get some ocular steroid and antibiotic. She has had persistent injection of the sclera of her eye. Reports it is occasionally itchy. No foreign body sensation. No change in vision. Patient does have a fine rash to the face. She reports she put sunscreen on every other day. Patient had previously been on acyclovir for or ocular palsy. Related Data Home Medications Medication Instructions Recorded Confirmed black cohosh 20 mg tablet 60 mg PO DAILY 08/10/20 08/24/24 evening primrose oil 500 mg capsule 1,000 mg PO DAILY 08/10/20 08/24/24 Allergies Allergy/AdvReac Type Severity Reaction Status Date / Time Sulfa (Sulfonamide Allergy Unknown Rash Verified 09/18/24 10:40 Antibiotics) Review of Systems Review of Systems: All systems reviewed & are unremarkable except as noted in HPI and below Constitutional: Constitutional: Reports no additional constitutional complaints Eyes: Eyes: Denies change in vision and Denies photophobia Comments: Right eye injection ENT: Reports system reviewed and no additional complaints, except as documented Cardiovascular: Cardiovascular: Reports no additional cardiovascular complaints Respiratory: Respiratory: Reports no additional respiratory complaints [facility] Past Medical History Medical History Bulimia on and off throughout are alive Osteopenia Surgical History Surgical History Breast implant status 1994 2017 History of hysteroscopy see history of present illness Spine injury w/ lumbar fusion, L5 discectomy 2000 Family History Family History Father Family history of type 2 diabetes mellitus Malignant neoplasm of prostate Mother Family history of congestive heart failure Social History Social History (Reviewed 08/24/24 @ 15:38 by SERAFIN Kramer Smoking status: Never smoker Second hand tobacco smoke exposure: No Alcohol intake: never Substance use: never Substance use type: does not use Living arrangements: with family Occupation/Education: occupation Gender identity (if verbalized by the patient): Female Sexual Orientation (if Verbalized by the Patient): Straight or Heterosexual Spiritual care concerns: No Agree to blood products: Yes Exam Narrative: GENERAL: Well-appearing, well-nourished, and in no acute distress. HEAD: Normocephalic, atraumatic. EYES: PERRL and EOMI. chemosis of the sclera of the right eye with scleral injection. Fluorescein staining magnification revealed no foreign body or corneal abrasion. Visual acuities 20/40 right eye and 20/30 left eye. ENT: Mucous membranes moist. No posterior auricular lymphadenopathy. NECK: Supple. No lymphadenopathy of the anterior or posterior cervical chain. CHEST: Clear to auscultation. No respiratory distress. HEART: Regular rate and rhythm. Normal peripheral pulses. EXTREMITIES: Normal range of motion. No edema. SKIN: Warm, dry, Fine maculopapular rash of the forehead /cheeks and nose. NEURO: Alert and oriented x3. Course Course Emergency Course: Patient has what appears to be contact dermatitis to face. Will place on Medrol Dosepak and discontinue her by daily facial cream. Follow-up with PCP. Vital Signs Vital signs: Vital Signs Temperature 97.7 F 09/18/24 10:41 Pulse Rate 77 09/18/24 10:41 Respiratory Rate 14 09/18/24 10:41 Blood Pressure 120/77 09/18/24 10:41 Pulse Oximetry 97 09/18/24 10:41 Oxygen Delivery Room Air 09/18/24 10:41 Temperature 97.7 F 09/18/24 10:41 Pulse Rate 77 09/18/24 10:41 Respiratory Rate 14 09/18/24 10:41 Blood Pressure 120/77 09/18/24 10:41 Pulse Oximetry 97 09/18/24 10:41 Oxygen Delivery Room Air 09/18/24 10:41 Medical Decision Making Vital Signs Vital Signs: Vital Signs Temperature 97.7 F 09/18/24 10:41 Pulse Rate 77 09/18/24 10:41 Respiratory Rate 14 09/18/24 10:41 Blood Pressure 120/77 09/18/24 10:41 Pulse Oximetry 97 09/18/24 10:41 Oxygen Delivery Room Air 09/18/24 10:41 Temperature 97.7 F 09/18/24 10:41 Pulse Rate 77 09/18/24 10:41 Respiratory Rate 14 09/18/24 10:41 Blood Pressure 120/77 09/18/24 10:41 Pulse Oximetry 97 09/18/24 10:41 Oxygen Delivery Room Air 09/18/24 10:41 Discharge Plan Discharge Clinical Impression: Contact dermatitis, Chemosis of right conjunctiva Patient Disposition: Home, Self-Care Condition: Stable Instructions: Contact Dermatitis (ED) Additional Instructions: Return ER if you cannot see, you have fever 100.4? F, you cannot swallow, you have additional concerns. Prescriptions: New methylprednisolone [Medrol (Azar)] 4 mg tablets,dose pack See Rx Instructions .ROUTE .COMPLEX Qty: 21 0RF Rx Instructions: for 6 days No Action black cohosh 20 mg tablet 60 mg PO DAILY evening primrose oil 500 mg capsule 1,000 mg PO DAILY Rx Instructions: give with meal/snack aspirin 81 mg tablet,delayed release (DR/EC) 81 mg PO DAILY Qty: 14 0RF cephalexin 500 mg capsule 500 mg PO Q12H Qty: 10 0RF Follow-up/Referrals: Gallo Santoyo MD [Primary Care Provider] - 1 Week
== END 2024-09-18 12:22 | disposition home or self-care (01) ==
PROVIDERS: Emergency Provider Emergency Medicine; PCP Family Medicine
DX: L25.9 Unspecified contact dermatitis, unspecified cause (principal); H11.421 Conjunctival edema, right eye; M85.80 Other specified disorders of bone density and structure, unspecified site
CPT/HCPCS: 99283; A9270

== ENCOUNTER 2024-09-21 08:06 | Outpatient (CLI) | payer OTHER, SELFPAY ==
--- NOTE | ~2024-09-21 | US_ITS ---
EXAMINATION: US thyroid DATE: 09/21/2024 08:43 INDICATION: Enlarged thyroid. TECHNIQUE: Multiple ultrasound images of the thyroid were obtained. COMPARISON: None. FINDINGS: The right thyroid lobe measures 5.8 x 2.3 x 2.2 cm. The left thyroid lobe measures 5.7 x 2.2 x 2.5 c m. In the left thyroid lobe, there is a 2.0 cm solid, hyperechoic, wider than tall nodule with ill-d efined margin without echogenic foci (TI-RADS TR3). In the left thyroid lobe, there is a 1.5 cm solid , hyperechoic, wider than tall nodule with smooth margin without echogenic foci (TR3). In the right t hyroid lobe, there is a 1.6 cm solid, hypoechoic, wider than tall nodule with irregular margin withou t echogenic foci (TR4). In the right thyroid lobe, there are 9 mm and 7 mm solid, hyperechoic, wider than tall nodules with ill-defined margin without echogenic foci (TR3). IMPRESSION: 1. Multinodular goiter. Ultrasound-guided fine needle aspiration of the 1.6 cm right thyroid nodule i s recommended. Reviewed, dictated and finalized at location A. HEADLIGHT MECHANIC IMPRESSION: 1. Multinodular goiter. Ultrasound-guided fine needle aspiration of the 1.6 cm right thyroid nodule is recommended.
== END 2024-09-21 08:07 | disposition home or self-care (01) ==
LOC: MICIMG 08:07
PROVIDERS: PCP Family Medicine; Visit Provider Nurse Practitioner
DX: E04.2 Nontoxic multinodular goiter (principal)
CPT/HCPCS: 76536

== ENCOUNTER 2024-10-12 10:24 | Outpatient (CLI) | payer OTHER, SELFPAY ==
--- NOTE | ~2024-10-12 | US_ITS ---
EXAMINATION: US FNA w image guidance DATE: 10/12/2024 11:16 INDICATION: Right thyroid nodule TECHNIQUE: A time-out was performed to verify the patient's name, date of , and procedure to be performed . The procedure and its benefits and risks were discussed with the patient. Risks specifically discus sed included bleeding and infection. The patient understood the risks and agreed to proceed. The neck was prepped and draped in the usual sterile manner. 4 mL 1% lidocaine was used for local anesthesia . 6 passes were made with a 25G needle into the lesion. Appropriate needle location was documented with continuous sonographic guidance. A sterile bandage was applied. There were no immediate compli cations. FINDINGS: Grayscale ultrasound images demonstrate biopsy needles advanced into the 1.6 cm solid hypoechoic TI R ADS 4 right thyroid nodule of concern. IMPRESSION: 1. Successful ultrasound-guided fine needle aspiration of the TI RADS 4 right thyroid nodule of conc corrina. Reviewed, dictated and finalized at location A. ISHING EDITOR IMPRESSION: 1. Successful ultrasound-guided fine needle aspiration of the TI RADS 4 right thyroid nodule of concern.
== END 2024-10-12 10:25 | disposition home or self-care (01) ==
PROVIDERS: PCP Family Medicine; Visit Provider Physician Assistant Medical
DX: E04.1 Nontoxic single thyroid nodule (principal); E04.2 Nontoxic multinodular goiter
CPT/HCPCS: 10005; 88172; 88173; 88305

== ENCOUNTER 2024-11-12 07:19 | Outpatient (CLI) | payer OTHER, SELFPAY ==
--- NOTE | ~2024-11-12 | US_ITS ---
EXAMINATION: US abdomen limited DATE: 11/12/2024 07:39 INDICATION: Abnormal liver function tests. TECHNIQUE: Multiple grayscale and Doppler ultrasound images of the abdomen were obtained. COMPARISON: None FINDINGS: The visualized portions of the head and body of the pancreas are normal. The liver is jose roberto l without focal lesion. No liver surface nodularity. There is normal flow in main portal vein. The ga llbladder is normal in size contains gallstones. No gallbladder wall thickening or sonographic Dash sign. The common duct is normal and measures 4 mm . IMPRESSION: 1. Cholelithiasis. No evidence of acute cholecystitis. Reviewed, dictated and finalized at location A. H DOUBLING MACHINE OPERATOR
== END 2024-11-12 07:20 | disposition home or self-care (01) ==
LOC: MICIMG 07:20
PROVIDERS: PCP Family Medicine; Visit Provider Family Medicine
DX: R79.89 Other specified abnormal findings of blood chemistry (principal); K80.20 Calculus of gallbladder without cholecystitis without obstruction
CPT/HCPCS: 76705

== ENCOUNTER 2024-12-25 16:31 | Emergency (ER) | payer OTHER, SELFPAY ==
[2024-12-25 16:39] VITALS: BP 125/72; PULSE 70; RESP 16; TEMP 36.4; O2SAT 99
--- NOTE | 2024-12-25 17:04 | ED.EYEPROB ---
HPI - Eye Problem General Chief complaint: Eye Problems Stated complaint: SWELLING TO RIGHT EYE Time Seen by Provider: 12/25/24 17:04 Source: patient Mode of arrival: ambulatory Limitations: no limitations History of Present Illness HPI Narrative: 59 YEARS OLD WHITE FEMALE CAME TO THE ED COMPLAINING OF SWOLLEN RIGHT EYE STARTED AROUND NOON TODAY. PATIENT HAD SIMILAR HISTORY OFTEN ON FOR A WHILE, BUT USUALLY PATIENT GO TO SLEEP WORKUP WITH THE SWELLING AND AT THE END OF THE DAY GO BACK TO NORMAL. THE PATIENT IS TELLING ME THAT SHE HAVE HISTORY OF FISTULA BEHIND THE RIGHT EYE, WAS SEEN BY NEUROSURGEON AND WAS TOLD THAT THE FISTULA WILL CLOSE OF UNDER OWN. PATIENT ALSO WAS SEEN BY FRONT COUNTER CLERK AT [facility] AT THAT TIME. PATIENT MAIN COMPLAINT ON ARRIVAL TO THE ED BLURRY VISION, TEARS, SWOLLEN OF THE EYEBALL, PAIN OF THE EYEBALL WORSE WITH MOVEMENT NO ITCHING, NO HEADACHE, NO NAUSEA OR VOMITING. PATIENT HAD CTA HEAD AND NECK ON AUGUST 20, 2024 IN OUR FACILITY AND SHOWED RIGHT-SIDED CAROTID CAVERNOUS FISTULA Related Data Home Medications ?Medication ?Instructions ?Recorded ?Confirmed ?Last Taken ?Type black cohosh 20 mg tablet 60 mg PO DAILY 08/10/20 10/02/24 Unknown History evening primrose oil 500 mg capsule 1,000 mg PO DAILY 08/10/20 10/02/24 Unknown History Allergies Allergy/AdvReac Type Severity Reaction Status Date / Time Sulfa (Sulfonamide Allergy Unknown Rash Verified 09/28/24 14:25 Antibiotics) Review of Systems Review of Systems: All systems reviewed & are unremarkable except as noted in HPI and below PMFSH Past Medical History Medical History Carotid-cavernous sinus fistula right Osteopenia Bulimia on and off throughout are alive Surgical History Surgical History History of hysteroscopy see history of present illness Breast implant status 1994 2017 Spine injury w/ lumbar fusion, L5 discectomy 2000 Family History Family History Father Family history of type 2 diabetes mellitus Malignant neoplasm of prostate Mother Family history of congestive heart failure Social History Social History Smoking status: Never smoker Second hand tobacco smoke exposure: No Alcohol intake: never Substance use: never Substance use type: does not use Living arrangements: with family Occupation/Education: occupation Gender identity (if verbalized by the patient): Female Sexual Orientation (if Verbalized by the Patient): Straight or Heterosexual Spiritual care concerns: No Agree to blood products: Yes Exam Narrative: GENERAL APPEARANCE: WELL-DEVELOPED, WELL-NOURISHED SKIN: NORMAL COLOR HEAD: NORMOCEPHALIC, NONTRAUMATIC EYES: RIGHT PROPTOSIS, CHEMOSIS, REDNESS AND SWELLING OF THE EYE, DOUBLE VISION, BLURRY VISION, ORBITAL PAIN SLUGGISH EXTRAOCULAR MUSCLE MOVEMENT ENT: OROPHARYNX NORMAL, EARS NORMAL, NOSE NORMAL NECK: SUPPLE, NONTENDER CHEST AND RESPIRATORY: AIRWAY PATENT, NO RESPIRATORY DISTRESS, NO ACCESSORY MUSCLE USE HEART: REGULAR RATE/RHYTHM MUSCULOSKELETAL: NORMAL RANGE OF MOTION, NONTENDER BACK NEUROLOGIC: ALERT AND ORIENTED ?3, PRECISION AGRONOMIST IS NORMAL TESTED, NO GROSS MOTOR DEFICIT Course Consultations Consultation #1: DR. ALFARO, THE FRONT COUNTER CLERK AT [facility] WHO ACCEPTED PATIENT TRANSFER TO THE ED Date: 12/25/24 Time: 18:49 Consultation #2: DR. PALMER, THE ED PHYSICIAN AT [facility] WHO ACCEPTED PATIENT TRANSFER Date: 12/25/24 Time: 18:49 Vital Signs Vital signs: Vital Signs Temperature 36.4 C L 12/25/24 16:39 Pulse Rate 70 12/25/24 16:39 Respiratory Rate 16 12/25/24 16:39 Blood Pressure 125/72 12/25/24 16:39 Pulse Oximetry 99 12/25/24 16:39 Temperature 36.4 C L 12/25/24 16:39 Pulse Rate 70 12/25/24 16:39 Respiratory Rate 16 12/25/24 16:39 Blood Pressure 125/72 12/25/24 16:39 Pulse Oximetry 99 12/25/24 16:39 MDM - Eye Problem MDM Narrative Medical decision making narrative: PATIENT PRESENTS WITH A SWOLLEN RIGHT EYE STARTED 6 HOURS AGO VITAL SIGNS ARE STABLE PHYSICAL EXAMINATION CONSISTENT WITH EXOPHTHALMOS, CHEMOSIS, TEARING OF THE RIGHT EYE DIFFERENTIAL DIAGNOSIS: INFECTION, ALLERGY, TRAUMA CT HEAD SHOWED VISUAL ACUITY LEFT EYE 20 50 RIGHT EYE 20 40, BOTH EYES 20 40 PATIENT GOT ACCEPTED TO BE TRANSFERRED TO [facility], TO BE SEEN BY FRONT COUNTER CLERK AND NEUROSURGEON AT THE ED Differential Diagnosis Differential diagnosis: Likely other ( ABOVE) Medical Records Attestation: I reviewed the patient's medical records. Critical Care Time Critical Care Time Critical Care Time: No Discharge Plan Discharge Clinical Impression: Carotid-cavernous fistula Patient Disposition: Acute Care Hospital Condition: Stable Patient Language: Slovenian Prescriptions: No Action black cohosh 20 mg tablet 60 mg PO DAILY evening primrose oil 500 mg capsule 1,000 mg PO DAILY Rx Instructions: give with meal/snack aspirin 81 mg tablet,delayed release (DR/EC) 81 mg PO DAILY Qty: 14 0RF Follow-up/Referrals: Gallo Santoyo MD [Primary Care Provider] -
--- NOTE | 2024-12-25 18:36 | PC.NURSE ---
ice pack to right eye orbit per pt request
[2024-12-25 19:35] VITALS: BP 114/80; PULSE 73; RESP 15; O2SAT 100
[2024-12-25 20:30] VITALS: PULSE 73; RESP 15; O2SAT 99
== END 2024-12-25 20:26 | disposition short-term general hospital (02) ==
PROVIDERS: Emergency Provider Emergency Medicine; PCP Family Medicine
DX: I67.1 Cerebral aneurysm, nonruptured (principal); M85.80 Other specified disorders of bone density and structure, unspecified site; Z98.1 Arthrodesis status
CPT/HCPCS: 70450; 99285

== ENCOUNTER 2025-05-08 07:08 | Outpatient (CLI) | payer OTHER, SELFPAY ==
--- OUTSIDE RECORDS SUMMARY | 2025-05-08 07:12 | XMS_ITS | Clinical Summary ---
Author Organization [facility] Address [address] [place] [address] Care Team Providers Care Forging Engineer Name Role Phone Anny Bloand DO Primary Care Provider Allergies Active Allergy Reactions Criticality Noted Date Comments Sulfa (Sulfonamide Antibiotics) Rash Low 04/25 Medications MV,CA,MIN/IRON/F A/GUARANA/CAFF (ONE-A-DAY WOMEN'S ACTIVE ORAL) Take by mouth. Active TRAMADOL HCL (TRAMADOL ORAL) Take by mouth. Active Flaxseed Oil Oil by Misc.(Non-D rug; Combo Route) route. Active THONG PRIMROSE/LINOLEI C/GAMOLENI (PRIMROSE OIL ORAL) Take by mouth. Active Active Problems No known active problems Family History Medical History Relation Name Comments Cancer Father prostate Diabetes Father Hypertension Father Other Mother fibroids Other Sister fibroids Breast Cancer Neg Hx Ovarian Cancer Neg Hx Relation Name Status Comments Father Mother Sister Social History Tobacco Use Types Packs/Day Years Used Date Smoking Tobacco: Never Smokeless Tobacco: Never Alcohol Use Standard Drinks/Week Comments No 0 (1 standard drink = 0.6 oz pur e alcohol) Comments Unknown Sex and Gender Information Value Date Recorded Sex Assigned at Not on file Legal Sex Female 10:58 AM CDT Gender Identity Not on file Sexual Orientation Not on file Occupation Industry Job Start Date Job End Date Not on file Not on file Not on file Not on file Last Filed Vital Signs Vital Sign Reading Time Taken Comments Blood Pressure 97/67 05/11/2014 2:15 PM CDT Pulse 72 05/11/2014 2:15 PM CDT Temperature - - Respiratory Rate - - Oxygen Saturation - - Inhaled Oxygen Concentration - - Weight 73 kg (161 lb) 05/11/2014 2:15 PM CDT Height 165.1 cm (5' 5) 05/11/2014 2:15 PM CDT Body Mass Index 26.79 05/11/2014 2:15 PM CDT Plan of Treatment Health Maintenance Due Date Last Done Comments DTAP/TDAP/TD VACCINES (1 - Tdap) 1984 HEPATITIS B VACCINES (1 of 3 - 19+ 3-dose series) 1984 COLORECTAL SCREENING 2010 Colorectal Cancer Screening 2010 FIT-DNA Q 3 years 2010 FIT/FOBT Q 1 year 2010 Flex Sig/CT Colonography Q 5 years 2010 ZOSTER VACCINE (1 of 2) 2015 PAP SMEAR 05/11/2017 05/11/2014 CERVICAL CANCER SCREENING 05/11/2019 HPV/Cotest (21-29) 05/11/2019 05/11/2014 HPV/Cotest (30-65) 05/11/2019 05/11/2014 BREAST CANCER SCREENING 05/23/2021 05/23/20 20, 07/15/2018, 05/18/2014 INFLUENZA VACCINE (#1) 2025 06/26/2016 Procedures Procedure Name Priority Date/Time Associated Diagnosis Comments MAMMO 3D JOSE SCREEN IMPL BILAT W OR WO CAD Routine 05/23/2020 2:47 PM CDT Breast cancer screening by mammogram CERV/VAG CYTOPATH, THIN PREP MOTOR BOSS AND HPV Routine 05/11/2014 2:29 PM CDT Well woman exam with routine gynecological exam from Last 3 Months or Most Recently Relevant to Health Maintenance Results * MAMMO SCRN KIRBY IMPL 3D JOSE W OR WO CAD (05/23/2020 2:47 PM CDT) Anatomical Region Laterality Modality Breast Bilateral Mammography 05/23/2020 2:48 PM CDT Impressions 05/24/2020 11:54 AM CDT IMPRESSION: No suspicious findings to suggest malignancy in either breast. Annual mammography is recommended. OVERALL FINAL ASSESSMENT: BI-RADS CATEGORY 1: Negative DICTATION LOCATION: [facility] Narrative 05/24/2020 11:54 AM CDT BILATERAL SCREENING DIGITAL IMPLANT MAMMOGRAM WITH 3D TOMOSYNTHESIS AND CAD DATE: 05/23/2020 2:47 PM HISTORY: Routine screening. TECHNIQUE: Full-field digital standard and implant displaced craniocaudal and mediolateral oblique projections of both breasts were obtained. Computer aided diagnosis was performed. Low-dose full-field digital breast tomosynthesis examination was performed with 2D and 3D acquisitions. Examination is read in conjunction with computer aided detection. COMPARISON: Comparisons dating back to 2013. BREAST COMPOSITION: Heterogeneously dense, which limits the sensitivity of mammography. FINDINGS: The bilateral subpectoral silicone implants appear intact, which limit mammographic sensitivity. No suspicious mass, suspicious microcalcifications, or architectural distortion is identified in either breast. Computer aided detection was used in the interpretation of this examination. Procedure Note Redd Osorio MD - 05/24/2020 BILATERAL SCREENING DIGITAL IMPLANT MAMMOGRAM WITH 3D TOMOSYNTHESIS AND CAD DATE: 05/23/2020 2:47 PM HISTORY: Routine screening. TECHNIQUE: Full-field digital standard and implant displaced craniocaudal and mediolateral oblique projections of both breasts were obtained. Computer aided diagnosis was performed. Low-dose full-field digital breast tomosynthesis examination was performed with 2D and 3D acquisitions. Examination is read in conjunction with computer aided detection. COMPARISON: Comparisons dating back to 2013. BREAST COMPOSITION: Heterogeneously dense, which limits the sensitivity of mammography. FINDINGS: The bilateral subpectoral silicone implants appear intact, which limit mammographic sensitivity. No suspicious mass, suspicious microcalcifications, or architectural distortion is identified in either breast. Computer aided detection was used in the interpretation of this examination. IMPRESSION: No suspicious findings to suggest malignancy in either breast. Annual mammography is recommended. OVERALL FINAL ASSESSMENT: BI-RADS CATEGORY 1: Negative DICTATION LOCATION: [facility] us Anny Boland DO MAMMO ORDERABLES Final Resu lt * CERV/VAG CYTOPATH, THIN PREP MOTOR BOSS AND HPV (05/11/2014 2:29 PM CDT) CLINICAL INFORMATION [employer] [facility] Comment:Routine exam LAST MENSTRUAL PERIOD [employer] [facility] Comment:[id number] PREV PAP: [employer] [facility] Comment:Information not prov ided PREV BX: [facility] Comment:Information not prov ided SOURCE [facility] Comment:Endocervix ADEQUACY: [facility] Comment: Satisfactory for evaluation. Endocervical/transformation zone component present. INTERPRETATION [facility] Comment:Negative for intraep ithelial lesion or malignancy. COMMENT [facility] Comment: This Pap test has been evaluated with computer assisted technology. 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 This assay detects E6/E7 viral messenger RNA (mRNA) from 14 high-risk HPV types (16,18,31,33,35,39,45,51,52,56,58,59,66,68). Test Performed at: [facility] [address] [place] [address] JACINTO ROA MD Endocervical 05/11/2014 2:29 PM CDT us Katie Patino MD PATHOLOGY/CYTOLOGY ORDERABLES nal Result INTERFACE SYSTEM Refer to clinic/hospital department [facility] [address] [place] [address] from Last 3 Months or Most Recently Relevant to Health Maintenance Insurance PREFERRED Care Teams Forging Engineer Relationship Specialty Start Date End Date Anny Boland DO [address] [place] [phone] PCP - General Family Practice 07/08/18
--- OUTSIDE RECORDS SUMMARY | 2025-05-08 07:12 | XMS_ITS | Clinical Summary ---
Author Organization [facility] Address [address] [place] [address] Phone Care Team Providers Care Road Advisor Name Role Phone Cynthia Dimas APRN, FLARE WORKER Primary Care Provid er Allergies Active Allergy Reactions Criticality Noted Date Comments Sulfa Antibiotics Rash Medications Black Cohosh 200 MG Capsule Take 1 Capsule by mouth daily. Active Coconut Oil Oil Take by mouth. Active estradiol (ESTRACE) 0.1 MG/GM Cream INSERT 1 GRAM VAGINALLY AT BEDTIME TWICE A WEEK 2 Active Evening Henrietta Oil 500 MG Capsule Take 1 Capsule by mouth. Active Milk Thistle 1000 MG Capsule Take 1 Capsule by mouth daily. Active Misc Natural Products (Turmeric Curcumin) Capsule Take 1 Capsule by mouth daily. Active Multiple Vitamins-Minera ls (Multi Vitamin/Mineral s) Tablet Take 1 Tablet by mouth daily. Active Omeprazole Magnesium 20 MG Tablet Delayed Response Take by mouth. Activ e Cholecalciferol (Vitamin D) 2000 UNIT Tablet Take by mouth. Activ e Active Problems Problem Noted Date Diagnosed Date Gastroesophageal reflux disease without esophagi tis 06/26/2016 Physical exam, annual (Adult) 06/26/2016 Equinus deformity of foot, acquired Plantar fascial fibromatosis Overview (05/22/2015): L>R Tarsal tunnel syndrome Neuralgia and neuritis Immunizations Immunization Administration Dates Next Due Hepatitis B Vaccine 03/06/2009,11/28/2008,2007 Influenza Vaccine, MDCK,quad rivalent, pres free 11/08/2021,10/04/2020 Influenza Vaccine, Quadrivalent, PF 07/03/2022,1 Influenza, Seasonal, Injectable, Undefined 11/09 MMR Vaccine 09/12/2008 PUR FLU 3+ YRS PRES FREE QUAD IM 06/26/2016 TD VACCINE 09/12/2008 Zoster Vaccine Recombinant 12/03/2021,06/20/2021 Family History Medical History Relation Name Comments Alzheimer's Disease Father Cancer Father prostate Diabetes Father Relation Name Status Comments Brother Alive Father Maternal Grandfather Maternal Grandmother Mother Alive Paternal Grandfather Paternal Grandmother Sister Alive Social History Tobacco Use Types Packs/Day Years Used Date Smoking Tobacco: Never Smokeless Tobacco: Never Tobacco Cessation:Counseling Given: Yes Alcohol Use Standard Drinks/Week Comments No 0 (1 standard drink = 0.6 oz pur e alcohol) PHQ-2 Answer Date Recorded Total Score - Questions 1-9 0 05/2022 Education Answer Date Recorded What is the highest level of school you have completed or the highest degree you have received? Bachelor's degree (e.g., BA, AB, BS) 06/26/2022 Sexually Active Control Partners Comments Not Currently Male Comments No Sex and Gender Information Value Date Recorded Sex Assigned at Not on file Legal Sex Female 8:40 PM CDT Gender Identity Not on file Sexual Orientation Not on file Last Filed Vital Signs Vital Sign Reading Time Taken Comments Blood Pressure 124/76 07/03/2022 1:15 PM CDT Pulse 86 07/03/2022 1:15 PM CDT Temperature 36.6 C (97.8 F) 07/03/2022 1:15 PM CDT Respiratory Rate 14 07/03/2022 1:15 PM CDT Oxygen Saturation 99% 07/03/2022 1:15 PM CDT Inhaled Oxygen Concentration - - Weight 70.6 kg (155 lb 11.2 oz) 07/03/2022 1:15 PM CDT Height 165.1 cm (5' 5) 07/03/2022 1:15 PM CDT Body Mass Index 25.91 07/03/2022 1:15 PM CDT Plan of Treatment Health Maintenance Due Date Last Done Comments Hepatitis C Virus (HCV) Screening 1965 TdaP Immunization 1965 Pap Smear 1986 Cervical Cancer Screening (CCS) 1995 HPV/Cotest 1995 Cologuard 2010 Immunochemical Fecal Occult Blood 2010 Pneumococcal Immunization (50+ years) (1 of 1 - PCV) 2015 Mammogram 12/27/2022 12/27/2021 SARS-COV-2 Immunization (3 - season) 2024 11/08/2021, 01/31/2021 Influenza Immunization (#1) 2025 09/0 05/2022, 11/08/2021, 10/04/2020, Additional history exists Colonoscopy 04/19/2029 04/19/2019 Colorectal Cancer Screening 04/19/2029 Respiratory Syncytial Virus (RSV) Immunization (Adult) (1 - 1-dose 75+ series) 2040 Hepatitis B Immunization Completed 009, 11/28/2008, 09/12/2008 Zoster Immunization Completed 12/03/2021, Human Papillomavirus (HPV) Immunization Aged Out No longer eligible based on patient's age to complete this topic Meningococcal Immunization (ACWY) Aged Out No longer eligible based on patient's age to complete this topic Rotavirus Immunization Aged Out No lo nger eligible based on patient's age to complete this topic Insurance [facility] Care Teams Road Advisor Relationship Specialty Start Date End Date Cynthia Dimas APRN, FLARE WORKER #[address] [id number] PCP - General Advanced Practice Nurse 07/03/22
--- OUTSIDE RECORDS SUMMARY | 2025-05-08 07:12 | XMS_ITS | Referral Summary ---
Author Organization [facility] Address [address] [place] [address] Care Team Providers Care Email Marketing Processor Name Role Phone Gallo Santoyo MD Primary Care Provider Encounters Date Type Department Care Team Description 04/14/2025 Results Follow-Up [facility] [address] [facility] 6th [place] [address] [place] [id number] Nilay Calabrese MD IR Angio Selective Internal Carotid Left 04/14/2025 8:15 AM CDT - 04/14/2025 11:59 PM CDT Hospital Encounter [facility]iology [address] [place] [id number] Nilay Calabrese MD Carotid-cavernous fistula Discharge Disposition: Discharge to home or self care 04/11/2025 Telephone [facility]iology [address] [place] [id number] Yulisa Donahue, IBETH 04/10/2025 Telephone [facility] [address] [place] [id number] Yulisa Donahue, IBETH 04/07/2025 Telephone [facility]iology [address] [place] [id number] Yulisa Donahue RN 03/01/2025 Telephone [facility] [address] [facility] 6th [place] [address] [place] [address] Cecile Henriquez, IBETH 03/01/2025 Orders Only [facility] [address] [facility] 6th [place] [address] [place] [address] Cecile Henriquez, IBETH Carotid-cavernous fistula (Primary Dx) 03/01/2025 Documentation [facility] [address] [facility] 6th [place] [address] [place] [address] Cecile Henriquez, IBETH 02/22/2025 4:28 AM CDT - 02/22/2025 11:59 PM CDT Hospital Encounter [facility] Interventional Radiology [address] [place] [address] Nilay Calabrese MD Lee, Woo Kyung, MD Reynolds, Troy Wayne, CRNA Carotid-cavernous fistula Discharge Disposition: Discharge to home or self care 02/22/2025 8:53 AM CDT Anesthesia Event [facility] Interventional Radiology [address] [place] [address] Bharath Velasco MD Montgomery, Andrea J., NP 02/17/2025 Orders Only Radiology [address] [place] [id number] Jing Ruiz PA 02/17/2025 4:30 PM CDT Pre-Admission Testing [facility] [address] [place] [id number] Preoperative testing (Primary Dx); Carotid-cavernous fistula from Last 3 Months Allergies Active Allergy Reactions Criticality Noted Date Comments Sulfa (Sulfonamide Antibiotics) Rash Medium 03/27 Medications multivitamin with minerals (Multiple Vitamin-Mineral s) tabletIndicatio ns:Vitamin Deficiency Prevention Take 1 tablet by mouth nightly Active milk thist seed ext/milk thist (MILK THISTLE EXTRACT ORAL)Indication s:supplement for liver Take 1 capsule by mouth nightly Active acetaminophen 500 mg capsuleIndicati ons:Pain Take 1 capsule (500 mg total) by mouth every 6 (six) hours as needed for pain 5 Active aspirin 81 mg enteric coated tablet Take 1 tablet (81 mg total) by mouth daily PLEASE HOLD UNTIL FOLLOW-UP with DR. CALABRESE 5 Active brimonidine (ALPHAGAN) 0.2 % ophthalmic solution Administer 1 drop into the right eye 2 (two) times a day 5 mL 1 5 Active Additional Information Patient taking differently:1 drop right eye 2 times daily,Indications: ocular hypertension, Informant: Self, Reported on 02/22/2025 dorzolamide (TRUSOPT) 2 % ophthalmic solution Administer 1 drop into the right eye 2 (two) times a day 10 mL 1 5 Active Additional Information Patient taking differently:1 drop right eye 2 times daily,Indications: ocular hypertension, Informant: Self, Reported on 02/22/2025 trimethoprim (TRIMPEX) 100 mg tabletIndicatio ns:Prevention of Bacterial Urinary Tract Infection Take 1 tablet (100 mg total) by mouth nightly as needed (UTI prevention) 5 Active evening primrose oil 500 mg capsuleIndicati ons:Breast Tenderness Take 1 capsule (500 mg total) by mouth 2 (two) times a day Active UNABLE TO FINDIndications :supplement for menopause Take 1 each by mouth nightly Med Name: Froylan Lloyd Active Active Problems Problem Noted Date Diagnosed Date 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 Redness of right eye 12/26/2024 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, acquired 12/14/2024 Neuralgia and neuritis 12/14/2024 Plantar fascial fibromatosis 12/14/2024 Overview (12/14/2024): L>R Tarsal tunnel syndrome 12/14/2024 Gastroesophageal reflux disease without esophagi tis 06/26/2016 Immunizations Immunization Administration Dates Next Due Hep B Vaccine 03/06/2009,11/28/2008,09/12/2008 Influenza, Quadrivalent, Ginette l Culture-based MDCK, Preservative Free, Antibiotic Free, Intramuscular 11/08/2021,10/04/2020 Influenza, Quadrivalent, Spl it, Preservative Free, Intramuscular 07/03/2022,10/24/2018,06/26/2016 Influenza, Trivalent, IM (MDV) 11/09/2013 MMR 09/12/2008 Td, adsorbed 09/12/2008 ZOSTER Recombinant 12/03/2021,06/20/2021 Social History Tobacco Use Types Packs/Day Years Used Date Smoking Tobacco: Never Passive Smoke Exposure: Never Smokeless Tobacco: Never Tobacco Cessation:Counseling Given: Not Answered AUDIT-C Answer Date Recorded Q1: How often do you have a drink containing alcohol? Never 02/22/2025 Q2: How many drinks containi ng alcohol do you have on a typical day when you are drinking? Patient does not drink Q3: How often do you have si x or more drinks on one occasion? Never 02/22/2025 Personal Safety Answer Date Recorded Have you ever been in or are you currently in a harmful physical or emotional relationship or is someone making you feel afraid or unsafe? 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 Gender Identity Not on file Sexual Orientation Not on file Last Filed Vital Signs Vital Sign Reading Time Taken Comments Blood Pressure 109/57 04/14/2025 12:25 PM CDT Pulse 60 04/14/2025 12:25 PM CDT Temperature 36.9 C (98.4 F) 04/14/2025 8:44 AM CDT Respiratory Rate 12 04/14/2025 10:33 AM CDT Oxygen Saturation 100% 04/14/2025 12:25 PM CDT Inhaled Oxygen Concentration - - Weight 69.9 kg (154 lb) 04/14/2025 8:44 AM CDT Height 165.1 cm (5' 5) 04/14/2025 8:44 AM CDT Body Mass Index 25.63 04/14/2025 8:44 AM CDT Plan of Treatment Not on file Medical Devices Implanted Type Area Asphalt Heater Tender Device Identifier Shelf Expiration Date Model / Serial / Lot Cage N/A: Spine Lumbar [employer] Starclose Se 6fr Clip Vascular Device Closure Nitinol Sterile 69960-24 - [id number] Implanted:Qty: 1 on 02/22/[address] [facility] [employer] 03/26/2026 [id number] / / [id number] [employer] Angio-Seal Vip 6fr Closere Device [id number] - [id number] Implanted:Qty: 1 on 04/14/[address] [facility] [employer] Akshat 12/09/2025 [id number] / / [id number] Explanted Type Area Asphalt Heater Tender Device Identifier Shelf Expiration Date Model / Serial / Lot [employer] Device Vascular Closure Celt Acd 5fr Sterile Kclt-05 - [id number] Explanted:Qty: 1 on 04/14/[address] [facility] [employer] 08/12/2027 [facility]-05 / / [id number] Procedures Procedure Name Priority Date/Time Associated Diagnosis Comments ANGIO SELECTIVE INTERNAL CAROTID LEFT Schedule Routine, Read Routine (OP Routine) 04/14/2025 10:28 AM CDT Carotid-cavernous fistula ANGIO SELECTIVE INTERNAL CAROTID LEFT Schedule Routine, Read Routine (OP Routine) 02/22/2025 10:37 AM CDT Carotid-cavernous fistula AZ AN PROCEDURE PLACEHOLDER Routine 02/22/2025 9:20 AM CDT AZ AN ELECTIVE ENDOTRACHEAL AIRWAY Routine 02/22/2025 9:20 AM CDT EGFR Routine 02/17/2025 5:23 PM CDT Carotid-cavernous fistula DIFFERENTIAL AUTO Routine 02/17/2025 5:2 3 PM CDT Carotid-cavernous fistula CPAP APTT ALGORITHM Routine 02/17/2025 5 :23 PM CDT Preoperative testing TYPE AND SCREEN 14 DAY Routine 02/17/2025 5:23 PM CDT Preoperative testing PROTIME-INR Routine 02/17/2025 5:23 PM CDT Carotid-cavernous fistula CBC WITH AUTO DIFFERENTIAL Routine 02/17/2025 5:23 PM CDT Carotid-cavernous fistula BASIC METABOLIC PANEL Routine 02/17/2025 5:23 PM CDT Carotid-cavernous fistula from Last 3 Months Results * IR Angio Selective Internal Carotid Left (04/14/2025 10:28 AM CDT) Anatomical Region Laterality Modality Neck Left Radio Fluoroscop y 04/14/2025 11:1 3 AM CDT Impressions 04/14/2025 2:17 PM CDT 1. 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 These results were discussed with patient after the conclusion of the procedure. Dictated by: Nathaniel Abrams M.D. The radiology attending physician has personally reviewed this study, and had reviewed and/or edited this written report and agrees with it. Electronically signed by: Nilay Calabrese M.D. 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 Patient presents for follow up diagnostic cerebral angiogram. PROCEDURE: 1. Cerebral angiography: Right internal carotid artery, right external carotid artery, left internal carotid artery, left external carotid artery, right common femoral artery injections 2. Ultrasound-guided vascular access 3. Hemostatic device placement ATTENDING SURGEON: Nilay Calabrese MD. He was present for the entire procedure. ASSISTING SURGEON(S): Nathaniel Abrams MD ANESTHESIA: Local in the right groin with 1% Lidocaine. Conscious sedation with Versed and Fentanyl was given by the nurse under the supervision of the attending interventional neuroradiologist. Pre-, intra-, and post-conscious sedation monitoring records are available in the chart. Total monitored sedation time was 60 minutes. MEDICATIONS: Local anesthesia: 1% Lidocaine SQ Sedation and Analgesia: Versed IV, Fentanyl IV MATERIALS: 18 G Single wall needle 5 Fr Merit Prelude sheath 3mm J wire 5 Fr Cordis vertebral catheter 6 Fr Angioseal closure devic CONTRAST: Visipaque 270 50 mL TECHNIQUE: Prior to the procedure, the technical aspects of the procedure, as well as benefits, potential risks and alternate options, were explained to the patient. Specifically, the risks of cerebral infarction, hemorrhage, weakness, paralysis, sensory changes, vision decline/blindness, cranial nerve palsy, facial pain, anaphylaxis, renal failure, access site hematoma, arterial dissection, arterial pseudoaneurysm, arteriovenous fistula were discussed with the patient in person. Informed consent was obtained. After informed consent was obtained, the patient was brought to the angiography suite. Moderate sedation (intravenous fentanyl and midazolam) was administered under the direction of the attending physician with continuous monitoring by a trained nurse specialist independent of those performing the procedure. Total monitored sedation time was 60 minutes. The patient was prepared and draped in the standard sterile fashion. The femoral head was localized by fluoroscopy . Buffered 1% lidocaine was infiltrated into the subcutaneous soft tissues overlying the planned site of vascular access, and time was allotted for good anesthetic effect. The right femoral artery was punctured using a single-wall needle under real-time ultrasound guidance. Ultrasound images demonstrated a patent vessel and were stored to PACS. A 5 [place] Lucian sheath was inserted over a 3 mm J wire and connected to a regulated pressurized infusion of heparinized saline. A 5 [place] Lucian vertebral catheter was introduced over the wire, then used in conjunction with a 3 mm J to select the above mentioned vessels. In each selected vessel, contrast was injected for imaging in multiple projections. Images of the cranial vessels were obtained for interpretation. The catheter was then withdrawn to near the arterial access site, where angiography was performed. The catheter was then removed. Hemostasis was achieved after sheath removal by placement of an AngioSeal closure device. There were no immediate complications related to the procedure. FINDINGS: RIGHT INTERNAL CAROTID ARTERY, CEREBRAL: There is no evidence of aneurysm, focal stenosis, or early draining vein. No evidence of arteriovenous shunting or early opacification of the cavernous sinus. No filling of the right superior ophthalmic vein. RIGHT EXTERNAL CAROTID ARTERY, CEREBRAL: There is no evidence of intracranial early venous drainage. LEFT INTERNAL CAROTID ARTERY, CEREBRAL: There is no evidence of aneurysm, focal stenosis, or early draining vein. No evidence of arteriovenous shunting or early opacification of the cavernous sinus. Decreased opacification of dural branches of left internal carotid artery as compared with angiography on 02/22/2025. LEFT EXTERNAL CAROTID ARTERY, CEREBRAL: There is no evidence of intracranial early venous drainage. COMPLICATIONS: There were no immediate complications. 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 Patient presents for follow up diagnostic cerebral angiogram. PROCEDURE: 1. Cerebral angiography: Right internal carotid artery, right external carotid artery, left internal carotid artery, left external carotid artery, right common femoral artery injections 2. Ultrasound-guided vascular access 3. Hemostatic device placement ATTENDING SURGEON: Nilay Calabrese MD. He was present for the entire procedure. ASSISTING SURGEON(S): Nathaniel Abrams MD ANESTHESIA: Local in the right groin with 1% Lidocaine. Conscious sedation with Versed and Fentanyl was given by the nurse under the supervision of the attending interventional neuroradiologist. Pre-, intra-, and post-conscious sedation monitoring records are available in the chart. Total monitored sedation time was 60 minutes. MEDICATIONS: Local anesthesia: 1% Lidocaine SQ Sedation and Analgesia: Versed IV, Fentanyl IV MATERIALS: 18 G Single wall needle 5 Fr Merit Prelude sheath 3mm J wire 5 Fr Cordis vertebral catheter 6 Fr Angioseal closure devic CONTRAST: Visipaque 270 50 mL TECHNIQUE: Prior to the procedure, the technical aspects of the procedure, as well as benefits, potential risks and alternate options, were explained to the patient. Specifically, the risks of cerebral infarction, hemorrhage, weakness, paralysis, sensory changes, vision decline/blindness, cranial nerve palsy, facial pain, anaphylaxis, renal failure, access site hematoma, arterial dissection, arterial pseudoaneurysm, arteriovenous fistula were discussed with the patient in person. Informed consent was obtained. After informed consent was obtained, the patient was brought to the angiography suite. Moderate sedation (intravenous fentanyl and midazolam) was administered under the direction of the attending physician with continuous monitoring by a trained nurse specialist independent of those performing the procedure. Total monitored sedation time was 60 minutes. The patient was prepared and draped in the standard sterile fashion. The femoral head was localized by fluoroscopy . Buffered 1% lidocaine was infiltrated into the subcutaneous soft tissues overlying the planned site of vascular access, and time was allotted for good anesthetic effect. The right femoral artery was punctured using a single-wall needle under real-time ultrasound guidance. Ultrasound images demonstrated a patent vessel and were stored to PACS. A 5 [place] Lucian sheath was inserted over a 3 mm J wire and connected to a regulated pressurized infusion of heparinized saline. A 5 [place] Lucian vertebral catheter was introduced over the wire, then used in conjunction with a 3 mm J to select the above mentioned vessels. In each selected vessel, contrast was injected for imaging in multiple projections. Images of the cranial vessels were obtained for interpretation. The catheter was then withdrawn to near the arterial access site, where angiography was performed. The catheter was then removed. Hemostasis was achieved after sheath removal by placement of an AngioSeal closure device. There were no immediate complications related to the procedure. FINDINGS: RIGHT INTERNAL CAROTID ARTERY, CEREBRAL: There is no evidence of aneurysm, focal stenosis, or early draining vein. No evidence of arteriovenous shunting or early opacification of the cavernous sinus. No filling of the right superior ophthalmic vein. RIGHT EXTERNAL CAROTID ARTERY, CEREBRAL: There is no evidence of intracranial early venous drainage. LEFT INTERNAL CAROTID ARTERY, CEREBRAL: There is no evidence of aneurysm, focal stenosis, or early draining vein. No evidence of arteriovenous shunting or early opacification of the cavernous sinus. Decreased opacification of dural branches of left internal carotid artery as compared with angiography on 02/22/2025. LEFT EXTERNAL CAROTID ARTERY, CEREBRAL: There is no evidence of intracranial early venous drainage. COMPLICATIONS: There were no immediate complications. IMPRESSION: 1. 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 These results were discussed with patient after the conclusion of the procedure. Dictated by: Nathaniel Abrams M.D. The radiology attending physician has personally reviewed this study, and had reviewed and/or edited this written report and agrees with it. Electronically signed by: Nilay Calabrese M.D. us Nilay Calabrese MD IM IR PROCEDURES Dannielle l Result * IR Angio Selective Internal Carotid Left (02/22/2025 10:37 AM CDT) Anatomical Region Laterality Modality Neck Left Radio Fluoroscop y 02/23/2025 5:44 AM CDT Impressions 02/23/2025 6:38 PM CDT 1. Significantly diminished arteriovenous shunting into the right cavernous sinus via dural branches of the cavernous right ICA. The cavernous sinus is only partially filling. There is no opacification of the right superior ophthalmic vein. There is no arteriovenous shunting visualized from the left internal carotid artery, left external carotid artery, or right external carotid artery. These results were discussed with patient and spouse after the conclusion of the procedure. 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 Dictated by: Nathaniel Abrams M.D. The radiology attending physician has personally reviewed this study, and had reviewed and/or edited this written report and agrees with it. Electronically signed by: Nilay Calabrese M.D. 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 Patient presents for diagnostic cerebral angiogram and possible endovascular embolization via a right orbitotomy and superior ophthalmic venous approach. PROCEDURE: 1. Cerebral angiography: right internal carotid artery, right external carotid artery, left external carotid artery, left internal carotid artery, left common femoral artery injections 2. Ultrasound-guided vascular access 3. Hemostatic device placement ATTENDING SURGEON: Nilay Calabrese MD. He was present for the entire procedure. ASSISTING SURGEON(S): MD Jose Pace MD ANESTHESIA: General MEDICATIONS: See MAR for anesthetic medications administered MATERIALS: 18 G Single wall needle 5 Fr Merit Prelude sheath 3mm J wire 5 Fr Cordis vertebral catheter Terumo Glidewire 6 Fr StarClose SE closure device CONTRAST: Visipaque 320 100 mL TECHNIQUE: Prior to the procedure, the technical aspects of the procedure, as well as benefits, potential risks and alternate options, were explained to the patient. Specifically, the risks of cerebral infarction, hemorrhage, weakness, paralysis, sensory changes, vision decline/blindness, cranial nerve palsy, facial pain, anaphylaxis, renal failure, access site hematoma, arterial dissection, arterial pseudoaneurysm, arteriovenous fistula were discussed with the patient in person. Informed consent was obtained. After informed consent was obtained, the patient was brought to the angiography suite. General anesthesia was provided by the Department of Anesthesiology for the duration of the case. The patient was prepared and draped in the standard sterile fashion. The femoral head was localized by fluoroscopy . Buffered 1% lidocaine was infiltrated into the subcutaneous soft tissues overlying the planned site of vascular access, and time was allotted for good anesthetic effect. The left femoral artery was punctured using a single-wall needle under real-time ultrasound guidance. Ultrasound images demonstrated a patent vessel and were stored to PACS. A 5 [place] Lucian sheath was inserted over a 3 mm J wire and connected to a regulated pressurized infusion of heparinized saline. A 5 [place] Lucian vertebral catheter was introduced over the wire, then used in conjunction with a glide to select the above mentioned vessels. In each selected vessel, contrast was injected for imaging in multiple projections. Images of the cranial vessels were obtained for interpretation. 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 Decision was made in conjunction with the ophthalmology team to not pursue embolization. The catheter was then withdrawn to near the arterial access site, where angiography was performed. The catheter was then removed. Hemostasis was achieved after sheath removal by placement of a StarClose SE closure device. There were no immediate complications related to the procedure. FINDINGS: RIGHT INTERNAL CAROTID ARTERY, CEREBRAL: There is no evidence of aneurysm, focal stenosis. There is mild arteriovenous shunting via dural branches of the cavernous segment of the right internal carotid artery into the right cavernous sinus though it is significantly diminished as compared to angiography on 12/30/2024. The cavernous sinus is only partially filling. The shunting also appears later on arterial phase than the prior angiography. There is no opacification of the right superior ophthalmic vein which was robustly opacified on prior angiography. RIGHT EXTERNAL CAROTID ARTERY, CEREBRAL: There is no evidence of intracranial early venous drainage. LEFT INTERNAL CAROTID ARTERY, CEREBRAL: There is no evidence of aneurysm, focal stenosis, or early draining vein. There is opacification of dural branches of the left internal carotid artery but there is no arteriovenous shunting into the left cavernous sinus and anterior intercavernous sinus as seen on prior angiography on 12/30/2024. LEFT EXTERNAL CAROTID ARTERY, CEREBRAL: There is no evidence of intracranial early venous drainage. There is retrograde filling of the left superior ophthalmic vein with filling of the cavernous sinus, though this is not early venous opacification. COMPLICATIONS: There were no immediate complications. 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 Patient presents for diagnostic cerebral angiogram and possible endovascular embolization via a right orbitotomy and superior ophthalmic venous approach. PROCEDURE: 1. Cerebral angiography: right internal carotid artery, right external carotid artery, left external carotid artery, left internal carotid artery, left common femoral artery injections 2. Ultrasound-guided vascular access 3. Hemostatic device placement ATTENDING SURGEON: Nilay Calabrese MD. He was present for the entire procedure. ASSISTING SURGEON(S): MD Jose Pace MD ANESTHESIA: General MEDICATIONS: See MAR for anesthetic medications administered MATERIALS: 18 G Single wall needle 5 Fr Merit Prelude sheath 3mm J wire 5 Fr Cordis vertebral catheter Terumo Glidewire 6 Fr StarClose SE closure device CONTRAST: Visipaque 320 100 mL TECHNIQUE: Prior to the procedure, the technical aspects of the procedure, as well as benefits, potential risks and alternate options, were explained to the patient. Specifically, the risks of cerebral infarction, hemorrhage, weakness, paralysis, sensory changes, vision decline/blindness, cranial nerve palsy, facial pain, anaphylaxis, renal failure, access site hematoma, arterial dissection, arterial pseudoaneurysm, arteriovenous fistula were discussed with the patient in person. Informed consent was obtained. After informed consent was obtained, the patient was brought to the angiography suite. General anesthesia was provided by the Department of Anesthesiology for the duration of the case. The patient was prepared and draped in the standard sterile fashion. The femoral head was localized by fluoroscopy . Buffered 1% lidocaine was infiltrated into the subcutaneous soft tissues overlying the planned site of vascular access, and time was allotted for good anesthetic effect. The left femoral artery was punctured using a single-wall needle under real-time ultrasound guidance. Ultrasound images demonstrated a patent vessel and were stored to PACS. A 5 [place] sheath was inserted over a 3 mm J wire and connected to a regulated pressurized infusion of heparinized saline. A 5 [place] vertebral catheter was introduced over the wire, then used in conjunction with a glide to select the above mentioned vessels. In each selected vessel, contrast was injected for imaging in multiple projections. Images of the cranial vessels were obtained for interpretation. 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 Decision was made in conjunction with the ophthalmology team to not pursue embolization. The catheter was then withdrawn to near the arterial access site, where angiography was performed. The catheter was then removed. Hemostasis was achieved after sheath removal by placement of a StarClose SE closure device. There were no immediate complications related to the procedure. FINDINGS: RIGHT INTERNAL CAROTID ARTERY, CEREBRAL: There is no evidence of aneurysm, focal stenosis. There is mild arteriovenous shunting via dural branches of the cavernous segment of the right internal carotid artery into the right cavernous sinus though it is significantly diminished as compared to angiography on 12/30/2024. The cavernous sinus is only partially filling. The shunting also appears later on arterial phase than the prior angiography. There is no opacification of the right superior ophthalmic vein which was robustly opacified on prior angiography. RIGHT EXTERNAL CAROTID ARTERY, CEREBRAL: There is no evidence of intracranial early venous drainage. LEFT INTERNAL CAROTID ARTERY, CEREBRAL: There is no evidence of aneurysm, focal stenosis, or early draining vein. There is opacification of dural branches of the left internal carotid artery but there is no arteriovenous shunting into the left cavernous sinus and anterior intercavernous sinus as seen on prior angiography on 12/30/2024. LEFT EXTERNAL CAROTID ARTERY, CEREBRAL: There is no evidence of intracranial early venous drainage. There is retrograde filling of the left superior ophthalmic vein with filling of the cavernous sinus, though this is not early venous opacification. COMPLICATIONS: There were no immediate complications. IMPRESSION: 1. Significantly diminished arteriovenous shunting into the right cavernous sinus via dural branches of the cavernous right ICA. The cavernous sinus is only partially filling. There is no opacification of the right superior ophthalmic vein. There is no arteriovenous shunting visualized from the left internal carotid artery, left external carotid artery, or right external carotid artery. These results were discussed with patient and spouse after the conclusion of the procedure. 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 Dictated by: Nathaniel Abrams M.D. The radiology attending physician has personally reviewed this study, and had reviewed and/or edited this written report and agrees with it. Electronically signed by: Nilay Calabrese M.D. Result [facility] Nilay Calabrese MD IMG IR PROCEDURES Dannielle l Result * AZ AN ELECTIVE ENDOTRACHEAL AIRWAY, AZ AN PROCEDURE PLACEHOLDER (02/22/2025 9:20 AM CDT) Narrative Stefan Kwong CRNA - 02/22/2025 9:20 AM CDT Stefan Kwong CRNA 02/22/2025 9:21 AM Airway Patient location: OR Date/time: 02/22/2025 9:20 AM Indications for airway management: anesthesia Difficult airway: no Staff: Supervising provider: Bharath Velasco MD Placed by: DATA WAREHOUSE MANAGER: Stefan Kwong CRNA Emergent airway documentation: Risks and benefits discussed: yes Consent obtained: yes Consent given by: patient Airway prep: Preoxygenated: yes Patient position: sniffing MILS maintained throughout: yes Mask difficulty assessment: 0 - not attempted Sedation level during airway: GA Final airway details: Final airway type: endotracheal airway Tube type: ETT ETT size: 7.0 mm Cuffed: yes Technique used for successful ETT placement: direct laryngoscopy Devices/Methods used in placement: intubating stylet Insertion site: oral Blade type: Maddie Blade size: 4 Cormack-Lehane (direct): grade IIa - partial view of glottis Cuff inflated with: air ETT to lips: 22 cm Placement verified by: auscultation and CO2 detection Airway secured with: silk tape Number of attempts: 1 Result [facility] Bharath Velasco MD ANESTHESIA ORDERABLES Final Res ult * TYPE AND SCREEN 14 DAY (02/17/2025 5:23 PM CDT) ABO Rh O Positive Helen, indirect Negative [facility] Blood 02/17/2025 5:23 PM CDT 02/17/2025 6:22 PM CDT Narrative LYSSA BISHOP - 02/17/2025 8:00 PM CDT Is this test being ordered in advance for a procedure?->Yes Expected date of procedure:->02/22/25 Has the patient been transfused in the past 3 months?->No Has the patient been in the past 3 months?->No Umu Gimenez NP LAB BLOOD BANK TEST ORD ERABLES Final Result Performing Organization Address [facility] Co de Phone Number [facility] [place] [address] * eGFR (02/17/2025 5:23 PM CDT) eGFR 64 >=60 mL/min/1. 73 m2 Comment: Interpretive Data Reference Interval Normal >/= 90 mL/min/1.73m2 Mildly decreased* 60 - 89 mL/min/1.73m2 Mildly to moderately decreased 45 - 59 mL/min/1.73m2 Moderately to severely decreased 30 - 44 mL/min/1.73m2 Severely decreased 15 - 29 mL/min/1.73m2 Kidney Failure < 15 mL/min/1.73m2 *Relative to young adult level Estimated glomerular filtration rate is determined by the 2020 CKD-EPI equation recommended by the National Kidney Foundation (A Unifying Approach to GFR Estimation: Recommendations of the NKF-ASK Task Force on Reassessing the Inclusion of Race in Diagnosing Kidney Disease, JASN 2020). The CKD-EPI equation should not be used for patients with unstable renal function and has not been validated in children and those over 70. Current interpretive data was last reviewed 2021. Blood 02/17/2025 5:23 PM CDT 02/17/2025 6:01 PM CDT Nilay Calabrese MD LAB BLOOD ORDERABLES F inal Result Performing Organization Address [facility] Co de [facility] Number [facility] [place] [address] * Differential, auto (02/17/2025 5:23 PM CDT) Neutrophil abs 3.00 1.50 - 6.50 K/cumm Imm gran abs 0.02 0.00 - 0.10 K/cumm [facility] Lymphocyte abs 2.37 0.80 - 3.30 K/cumm [facility] Monocyte abs 0.39 0.20 - 0.80 K/cumm [facility] Eosinophil abs 0.06 0.00 - 0.50 K/cumm [facility] Basophil abs 0.03 0.00 - 0.10 K/cumm [facility] Neutrophil pct 51.2 % [facility] Comment: Interpretive Data Percent cell count reference ranges are not reported, since discordance with absolute values may lead to misinterpretation of CBC data. Current Interpretive Data was last revised on 2018. Imm gran pct 0.3 % [facility] Comment: Interpretive Data Percent cell count reference ranges are not reported, since discordance with absolute values may lead to misinterpretation of CBC data. Current Interpretive Data was last revised on 2018. Lymphocyte pct 40.4 % [facility] Comment: Interpretive Data Percent cell count reference ranges are not reported, since discordance with absolute values may lead to misinterpretation of CBC data. Current Interpretive Data was last revised on 2018. Monocyte pct 6.6 % [facility] Comment: Interpretive Data Percent cell count reference ranges are not reported, since discordance with absolute values may lead to misinterpretation of CBC data. Current Interpretive Data was last revised on 2018. Eosinophil pct 1.0 % [facility] Comment: Interpretive Data Percent cell count reference ranges are not reported, since discordance with absolute values may lead to misinterpretation of CBC data. Current Interpretive Data was last revised on 2018. Basophil pct 0.5 % [facility] Comment: Interpretive Data Percent cell count reference ranges are not reported, since discordance with absolute values may lead to misinterpretation of CBC data. Current Interpretive Data was last revised on 2018. Blood 02/17/2025 5:23 PM CDT 02/17/2025 6:01 PM CDT Nilay Calabrese MD LAB BLOOD ORDERABLES F inal Result [facility] [place] [address] * CPAP aPTT algorithm (02/17/2025 5:23 PM CDT) [facility] aPTT 35 28 - 38 sec Comment: Interpretive Data Heparin therapeutic range: 66.0 - 100.0 seconds. Range based on correlation with therapeutic heparin activity range of 0.3 - 0.7 Units/mL. Current interpretive data was last revised on 2023. Blood 02/17/2025 5:23 PM CDT 02/17/2025 5:23 PM CDT Umu Gimenez NP LAB BLOOD ORDERABLES nal Result [facility] [place] [address] * CBC with auto differential (02/17/2025 5:23 PM CDT) [facility] WBC 5.87 3.80 - 9.90 K/cumm Hgb 14.9 11.9 - 15.5 g/dL [facility] Hct 45.2 35.6 - 45.5 % [facility] Plt 237 150 - 400 K/cumm [facility] MPV 9.7 9.1 - 12.3 fL [facility] RBC 4.96 3.90 - 5.20 M/cumm [facility] MCV 91.1 81.3 - 96.4 fL [facility] MCH 30.0 27.1 - 33.3 pg [facility] MCHC 33.0 32.3 - 35.7 g/dL [facility] RDW CV 12.7 11.1 - 14.9 % [facility] RDW SD 41.9 35.7 - 48.1 fL [facility] NRBC abs 0.00 0.00 - 0.01 K/cumm [facility] Blood 02/17/2025 5:23 PM CDT 02/17/2025 6:01 PM CDT Narrative [facility] - 02/17/2025 6:09 PM CDT CPAP ORDER Nilay Calabrese MD LAB BLOOD ORDERABLES F inal Result Performing Organization Address [facility] Co de Phone Number [facility] [place] [address] * Protime-INR (02/17/2025 5:23 PM CDT) Pathologist [facility] PT 10.8 9.7 - 13.0 sec INR 1.00 0.90 - 1.20 [facility] Comment: Interpretive data Oral anticoagulant therapeutic ranges: Venous thromboembolism prophylaxis or treatment: 2.0-3.0 CARDIOLOGY Standard range: 2.0-3.0 High-intensity range: 2.5-3.5 Refer to indication-specific guidelines for appropriate target ranges for prosthetic heart valve replacement. Current interpretive data was last revised on 2019. Blood 02/17/2025 5:23 PM CDT 02/17/2025 5:23 PM CDT Narrative [facility] - 02/17/2025 6:05 PM CDT CPAP ORDER Nilay Calabrese MD LAB BLOOD ORDERABLES F inal Result Performing Organization Address [facility] de Phone Number [facility] [place] [address] * Basic metabolic panel (02/17/2025 5:23 PM CDT) Pathologist [facility] Sodium 145 135 - 145 mmol/L Potassium, pl 4.1 3.3 - 4.9 mmol/L [facility] Chloride 108 97 - 110 mmol/L [facility] CO2 30 22 - 32 mmol/L [facility] Anion gap 7 2 - 15 mmol/L [facility] BUN 18 6 - 25 mg/dL [facility] Creatinine 1.01 0.60 - 1.10 mg/dL [facility] Glucose 97 70 - 199 mg/dL [facility] Comment: Interpretive Data Fasting glucose >/= 126 mg/dl is diagnostic for diabetes. Fasting is defined as no caloric intake for at least 8 hours. Fasting glucose between 100 mg/dl to 125 mg/dl is diagnostic of prediabetes. In a patient with classic symptoms of hyperglycemia or hyperglycemic crisis, a random glucose >/= 200 mg/dl is diagnostic for diabetes. In the absence of unequivocal hyperglycemia, results should be confirmed by repeat testing. The classification and Diagnosis of Diabetes Diabetes Care 202; 46: S19-S40. Current interpretive data was last revised 2022. Calcium 9.3 8.5 - 10.3 mg/dL [facility] Blood 02/17/2025 5:23 PM CDT 02/17/2025 6:01 PM CDT Narrative [facility] - 02/17/2025 6:30 PM CDT CPAP ORDER Has the patient fasted?->No Nilay Calabrese MD LAB BLOOD ORDERABLES F inal Result Performing Organization Address City/State/[facility] Co de Phone Number [facility] [place] [address] from Last 3 Months Insurance [facility] Advance Directives For more information, please contact: [phone] * Full Code (Latest Code Status on File) Date Activated Date Inactivated Comments 04/14/2025 10:42 AM 04/15/2025 4:44 AM * Full Code Date Activated Date Inactivated Comments 02/22/2025 7:12 AM 02/23/2025 4:46 AM * Full Code Date Activated Date Inactivated Comments 12/26/2024 2:32 AM 12/31/2024 3:16 PM * Full Code Date Activated Date Inactivated Comments 12/26/2024 2:22 AM 12/26/2024 2:32 AM Care Teams Email Marketing Processor Relationship Specialty Start Date End Date Gallo Santoyo MD [address] [facility] [address] [place] [address] PCP - General Family Medicine 09/29/24
--- OUTSIDE RECORDS SUMMARY | 2025-05-08 07:12 | XMS_ITS | Clinical Summary ---
Author Organization [facility] Address [facility] [place] [address] Care Team Providers Care Science Interpreter Name Role Phone Gallo Santoyo MD Primary Care Provider [phone] Allergies Active Allergy Reactions Criticality Noted Date Comments Sulfa Antibiotics Rash Low 04/15/2019 Medications Black Cohosh 200 MG Cap Take 1 capsule by mouth daily. Active Evening [place] Oil 500 MG Cap Take 1 capsule by mouth 3 (three) times a day. Active multi vitamin/mineral s tablet Take 1 tablet by mouth daily. Active Misc Natural Products (TURMERIC CURCUMIN) capsule Take 1 capsule by mouth daily. Active Milk Thistle 1000 MG Cap Take 1 capsule by mouth daily. Active aspirin EC (ASPIRIN EC) 81 MG tablet Take 81 mg by mouth daily. Active Coconut Oil Oil Take 1,000 mg by mouth daily. Active omeprazole EC 20 MG tablet Take 20 mg by mouth as needed. Active ibuprofen 200 MG tablet Take 200 mg by mouth every 6 (six) hours as needed for Pain. Active Encounters Date Type Department Care Team Description 02/13/2025 3:06 PM CDT - 02/13/2025 11:59 PM CDT Hospital Encounter [facility] [place] [address] [place] [address] Bethany Eng MD Discharge Disposition: Home or Self Care (Routine Discharge) 02/13/2025 Travel from Last 3 Months Social History Tobacco Use Types Packs/Day Years Used Date Smoking Tobacco: Never Smokeless Tobacco: Never Alcohol Use Standard Drinks/Week Comments No 0 (1 standard drink = 0.6 oz pur e alcohol) AUDIT-C Answer Date Recorded Frequency of Alcohol Consumption Never 04/15/2019 Average Number of Drinks Not on file 019 Frequency of Binge Drinking Not on file 03/27 Comments No Sex and Gender Information Value Date Recorded Sex Assigned at Female 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 Legal Sex Female 5:19 PM CDT Gender Identity Not on file Sexual Orientation Not on file Last Filed Vital Signs Vital Sign Reading Time Taken Comments Blood Pressure 115/66 04/19/2019 2:44 PM CDT Pulse 76 04/19/2019 2:44 PM CDT Temperature 36.7 C (98.1 F) 04/19/2019 2:28 PM CDT Respiratory Rate 18 04/19/2019 2:44 PM CDT Oxygen Saturation 100% 04/19/2019 2:44 PM CDT Inhaled Oxygen Concentration - - Weight 70.3 kg (155 lb) 04/15/2019 12:09 PM CDT Height 165.1 cm (5' 5) 04/15/2019 12:09 PM CDT Body Mass Index 25.79 04/15/2019 12:09 PM CDT Plan of Treatment Health Maintenance Due Date Last Done Comments Annual Physical 1968 Hepatitis C 1983 Cervical Cancer Screening Pap with HPV Testing (Age 30 to 64) Every 5 Years 1995 DTaP, Tdap and Td Vaccines (1 - Tdap) 09/13/2008 09/12/2008 Pneumococcal Vaccine: 50+ Years (1 of 1 - PCV) 2015 Cervical Cancer Screening Pap Smear (Age 30 to 64) Every 3 Years 05/11/2017 05/11/2014 Cervical Cancer Screening with HPV 05/11/2017 COVID-19 Vaccine ( season) 2024 11/08/2021, 01/31/2021 Mammogram Screening 02/13/2027 02/13/2025, 02/12/2024, 01/29/2023, Additional history exists Colorectal Cancer Screening Colonoscopy (10 Years) 04/19/2029 04/19/2019 Zoster Vaccines Completed 12/03/2021, 06/20/2021 Meningococcal B Vaccine Aged Out No l onger eligible based on patient's age to complete this topic Meningococcal Vaccine Aged Out No farhad satya eligible based on patient's age to complete this topic RSV Immunizations Under 20 Months Aged Out No longer eligible based on patient's age to complete this topic Procedures Procedure Name Priority Date/Time Associated Diagnosis Comments MG SCREENING IMPLANT W JOSE KIRBY DIGI Routine 02/13/2025 3:27 PM CDT Encounter for screening mammogram for breast cancer COLONOSCOPY Routine 04/19/2019 11:07 AM CDT from Last 3 Months or Most Recently Relevant to Health Maintenance Results * MG SCREENING IMPLANT W JOSE KIRBY DIGI (02/13/2025 3:27 PM CDT) Anatomical Region Laterality Modality Breast Bilateral Mammography 02/14/2025 10:0 8 AM CDT Impressions 02/14/2025 10:10 AM CDT IMPRESSION: No suspicious mammographic findings. Recommendation: 1. Routine Screening, Bilateral Assessment: ACR BI-RADS 2 - BENIGN FINDING(S) Ordered By: BETHANY ENG Interpreted By: Hood Briggs, 02/14/2025 10:08 AM Narrative 02/14/2025 10:10 AM CDT [facility] [address] [place] [address] Examination: Screening bilateral mammogram Exam Date/Time: 02/13/2025 3:07 PM Clinical history: No current complaints. Comparison: 02/12/2024 Technique: Digital screening mammography of both breasts was performed. Breast tomosynthesis acquisitions were obtained and reviewed. This study was read with the assistance of a computer-aided detection system. Tissue density: There are scattered areas of fibroglandular density. Findings: No suspicious masses, malignant appearing calcifications, skin thickening or other abnormalities are present. No significant change from the prior exam. Bilateral breast implants, stable. us Bethany Eng MD MAMMO Final Res ult from Last 3 Months Insurance [employer] Care Teams Science Interpreter Relationship Specialty Start Date End Date Gallo Santoyo MD [address] [place] [address] PCP - General FAMILY PRACTICE 02/12/24
--- OUTSIDE RECORDS SUMMARY | 2025-05-08 07:12 | XMS_ITS | Encounter Summary ---
Author Organization [facility] Address [address] [place] [address] Phone Care Team Providers Care Central Processing Technician Name Role Phone Gallo Santoyo MD Primary Care Provider Encounter Details Date Type Department Care Team (Late st Contact Info) Description 04/14/2025 Results Follow-Up [facility] Neurosurgery [address] [facility] [address] [place] [address] [place] [address] Nilay Anaya MD [address] [place] [address] IR Angio Selective Internal Carotid Left Social History Tobacco Use Types Packs/Day Years Used Date Smoking Tobacco: Never Passive Smoke Exposure: Never Smokeless Tobacco: Never AUDIT-C Answer Date Recorded Q1: How often [...] on file 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 Discussed with patient that she does not need scheduled follow up with us. She was asked to call if she develops new symptoms or with any concerns. documented in this encounter Plan of Treatment Not on file documented as of this encounter Visit Diagnoses Not on filedocumented in this encounter Care Teams Central Processing Technician Relationship Specialty Start Date End Date Gallo Santoyo MD [address] [facility] [address] [place] [address] PCP - General Family Medicine 09/29/24 documented as of this encounter
--- OUTSIDE RECORDS SUMMARY | 2025-05-08 07:12 | XMS_ITS | Clinical Summary ---
Author Organization [facility] Address [address] [place] [id number] Care Team Providers Care Lawn Sprinkler Installer Name Role Phone Gallo Santoyo MD Primary Care Provider Allergies Active Allergy Reactions [...] Gastroesophageal reflux disease without esophagi tis 06/26/2016 Encounters Date Type Department Care Team Description 04/14/2025 8:15 AM CDT - 04/14/2025 11:59 PM CDT Hospital Encounter [facility] Neuro Interventional Radiology [address] [place] [address] Nilay Calabrese MD Carotid-cavernous fistula Discharge Disposition: Discharge to home or self care 04/14/2025 Results Follow-Up [facility] Neurosurgery [facility] Advanced Medicine 6th [place] [address] [place] [address] Nilay Calabrese MD IR Angio Selective Internal Carotid Left 04/11/2025 Telephone [facility] Neuro Interventional Radiology [address] [place] [address] Yulisa Donahue RN 04/10/2025 Telephone [facility] Neuro Interventional Radiology [address] [place] [address] Yulisa Donahue RN 04/07/2025 Telephone [facility] Neuro Interventional Radiology [address] [place] [address] Yulisa Donahue, IBETH 03/01/2025 Telephone [facility] Neurosurgery [address] [place] [address] 6th [place] [address] [place] [phone] Cecile Henriquez, IBETH 03/01/2025 Orders Only [facility] Neurosurgery [address] [place] [address] 6th [place] [address] [place] [phone] Cecile Henriquez, IBETH Carotid-cavernous fistula (Primary Dx) 03/01/2025 Documentation [facility] Neurosurgery [address] [place] [address] [place] [address] [place] [phone] Cecile Henriquez, IBETH 02/22/2025 8:53 AM CDT Anesthesia Event [facility] Neuro Interventional Radiology [address] [place] [address] Bharath Velasco MD Montgomery, Andrea J., NP 02/22/2025 4:28 AM CDT - 02/22/2025 11:59 PM CDT Hospital Encounter [facility] Neuro Interventional Radiology [address] [place] [address] Nilay Calabrese MD Lee, Woo Kyung, MD Reynolds, Troy Wayne, CRNA Carotid-cavernous fistula Discharge Disposition: Discharge to home or self care 02/17/2025 4:30 PM CDT Pre-Admission Testing [facility] [address] [place] [phone] Preoperative testing (Primary Dx); Carotid-cavernous fistula 02/17/2025 Orders Only Radiology [address] [place] [id number] Jing Ruiz PA from Last 3 Months Immunizations Immunization Administration Dates Next Due Hep B Vaccine 03/06/2009,11/28/2008,09/12/2008 Influenza, Quadrivalent, Ginette l Culture-based MDCK, Preservative Free, Antibiotic Free, Intramuscular 11/08/2021,10/04/2020 Influenza, Quadrivalent, Spl it, Preservative Free, Intramuscular 07/03/2022,10/24/2018,06/26/2016 Influenza, Trivalent, IM (MDV) 11/09/2013 MMR 09/12/2008 Td, adsorbed 09/12/2008 ZOSTER Recombinant 12/03/2021,06/20/2021 Surgical History Surgery Date Site/Laterality Comments BREAST SURGERY 05/2018 ANGIO SELECTIVE INTERNAL CAROTID LEFT 12/26/2024 Lef t ANGIO SELECTIVE CAROTID ELEVATOR ERECTOR HELPER RIGHT 12/30/2024 Right ANGIO SELECTIVE INTERNAL CAROTID LEFT 02/22/2025 Lef t ANGIO SELECTIVE INTERNAL CAROTID LEFT 04/14/2025 Lef t Medical History Medical History Date Comments Thyroid disease 08/2023 PONV (postoperative nausea and vomiting) Family History Medical History Relation Name Comments Diabetes Father Henrik Anesthesia problems Neg Hx Malig Hypertension Neg Hx Malig Hyperthermia Neg Hx Pseudochol deficiency Neg Hx Relation Name Status Comments Father Henrik Social History Tobacco Use Types Packs/Day Years [...] on file 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 Gender Identity Not on file Sexual Orientation Not on file Obstetrics History Last Filed Vital Signs Vital Sign Reading [...] 04/14/2025 8:44 AM CDT Plan of Treatment Health Maintenance Due Date Last Done Comments Cervical Cancer Screening 1965 Colon Cancer Screening-Colonoscopy 1965 Depression Screening 1965 Hepatitis C Screening 1965 Regular Well Visit/Exam 18-64 1983 DTaP/Tdap/Td Vaccine (1 - Tdap) 09/13/2008 09/12/2008 Covid-19 Vaccine ( season) 2024 11/08/2021, 01/31/2021 Influenza Vaccine (#1) 2025 , 11/08/2021, 10/04/2020, Additional history exists Breast Cancer Screening-Mammogram 02/13/2026 02/13/2025, 02/13/2025, 02/12/2024, Additional history exists Hepatitis B Screening Completed 03/06/2009 , 11/28/2008, 09/12/2008 Zoster Vaccine Completed 12/03/2021, 06/20/2021 Pneumococcal vaccine <65 Aged Out No longer eligible based on patient's age to complete this topic Medical Devices Implanted Type Area Electrician Substation Supervisor Device Identifier Shelf Expiration Date Model / Serial / Lot Cage N/A: Spine Lumbar [employer] Starclose Se 6fr Clip Vascular Device Closure Nitinol Sterile 98576-81 - [id number] Implanted:Qty: 1 on 02/22/2025 at [facility] [employer] 03/26/2026 [id number] / / [id number] [employer] Angio-Seal Vip 6fr Closere Device [id number] - [id number] Implanted:Qty: 1 on 04/14/2025 at [facility] [employer] 12/09/2025 [id number] / / [id number] Explanted Type Area Electrician Substation Supervisor Device Identifier Shelf Expiration Date Model / Serial / Lot [employer] Device Vascular Closure Celt Acd 5fr Sterile Kclt-05 - [id number] Explanted:Qty: 1 on 04/14/2025 at [facility] [employer] 08/12/2027 [facility]-05 / / [id number] Procedures Procedure Name Priority Date/Time Associated Diagnosis Comments ANGIO SELECTIVE INTERNAL CAROTID LEFT Schedule Routine, Read Routine (OP Routine) 04/14/2025 10:28 AM CDT Carotid-cavernous fistula ANGIO SELECTIVE INTERNAL CAROTID LEFT Schedule Routine, Read Routine (OP Routine) 02/22/2025 10:37 AM CDT Carotid-cavernous fistula MS AN PROCEDURE PLACEHOLDER Routine 02/22/2025 9:20 AM CDT MS AN ELECTIVE ENDOTRACHEAL AIRWAY Routine 02/22/2025 9:20 [...] arteriovenous shunting or opacification of previously 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 These results [...] a 59 year old female with known Igiugig type B carotid cavernous fistula with decreased [...] and were stored to PACS. A 5 Italian sheath was inserted over a 3 mm J wire and connected to a regulated pressurized infusion of heparinized saline. A 5 Italian vertebral catheter was introduced over the wire, [...] a 59 year old female with known Igiugig type B carotid cavernous fistula with decreased [...] and were stored to PACS. A 5 Italian sheath was inserted over a 3 mm J wire and connected to a regulated pressurized infusion of heparinized saline. 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 These results were discussed with patient after the conclusion of the procedure. Dictated by: Nathaniel Abrams M.D. The radiology attending physician has personally reviewed this study, and had reviewed and/or edited this written report and agrees with it. Electronically signed by: Nilay Calabrese M.D. us Nilay Calabrese MD IMG IR PROCEDURES Dannielle l Result * IR [...] angiogram in 2 months. Dictated by: Nathaniel Aliza, M.D. The radiology attending physician has personally reviewed this study, and had reviewed and/or edited this written report and agrees with it. Electronically signed by: Nilay Calabrese M.D. Narrative 02/23/2025 6:38 PM CDT DIAGNOSTIC CEREBRAL ANGIOGRAM CLINICAL INDICATION: Patient is a 59 year old female who has known history of a Igiugig type B carotid cavernous fistula who recently [...] and were stored to PACS. A 5 Italian sheath was inserted over a 3 mm J wire and connected to a regulated pressurized infusion of heparinized saline. A 5 Italian vertebral catheter was introduced over the wire, [...] female who has known history of a Igiugig type B carotid cavernous fistula who recently [...] and were stored to PACS. A 5 Italian sheath was inserted over a 3 mm J wire and connected to a regulated pressurized infusion of heparinized saline. A 5 Italian vertebral catheter was introduced over the wire, [...] it. Electronically signed by: Nilay Calabrese M.D. Nilay Calabrese MD IM IR PROCEDURES Dannielle l Result * MS AN ELECTIVE ENDOTRACHEAL AIRWAY, MS AN PROCEDURE PLACEHOLDER (02/22/2025 9:20 AM CDT) Narrative Stefan Kwong CRNA - 02/22/2025 9:20 AM CDT Stefan Kwong CRNA 02/22/2025 9:21 AM Airway Patient location: OR Date/time: 02/22/2025 9:20 AM Indications for airway management: anesthesia Difficult airway: no Staff: Supervising provider: Bharath Velasco MD Placed by: MANAGER COSTING: Stefan Kwong CRNA Emergent airway documentation: Risks [...] with: silk tape Number of attempts: 1 us Bharath Velasco MD ANESTHESIA ORDERABLES Final Res ult * TYPE AND SCREEN 14 DAY (02/17/2025 5:23 PM CDT) ABO Rh O Positive Helen, indirect Negative [facility] Blood 02/17/2025 5:23 PM CDT 02/17/2025 6:22 PM CDT N[facility]ative [facility] - 02/17/2025 8:00 PM CDT Is this test being ordered in advance for a procedure?->Yes Expected date of procedure:->02/22/25 Has the patient been transfused in the past 3 months?->No Has the patient been in the past 3 months?->No us Umu Gimenez NP LAB BLOOD BANK TEST ORD ERABLES Final Result [facility] Department [place] [address] * eGFR (02/17/2025 5:23 PM CDT) eGFR [...] 5:23 PM CDT 02/17/2025 6:01 PM CDT us Nilay Calabrese MD LAB BLOOD ORDERABLES F inal Result [facility] Department [place] [address] * Differential, auto (02/17/2025 5:23 PM CDT) Neutrophil abs 3.00 1.50 - 6.50 K/cumm Imm gran abs 0.02 0.00 - 0.10 K/cumm [facility] Lymphocyte abs 2.37 0.80 - 3.30 K/cumm [facility] Monocyte abs 0.39 0.20 - 0.80 K/cumm [facility] Eosinophil abs 0.06 0.00 - 0.50 K/cumm [facility] Basophil abs 0.03 0.00 - 0.10 K/cumm [facility] Neutrophil pct 51.2 % [facility] Comment: Interpretive Data Percent cell count reference ranges are not reported, since discordance with absolute values may lead to misinterpretation of CBC data. Current Interpretive Data was last revised on 2018. Imm gran pct 0.3 % [facility] Comment: Interpretive Data Percent cell count reference ranges are not reported, since discordance with absolute values may lead to misinterpretation of CBC data. Current Interpretive Data was last revised on 2018. Lymphocyte pct 40.4 % [facility] Comment: Interpretive Data Percent cell count reference ranges are not reported, since discordance with absolute values may lead to misinterpretation of CBC data. Current Interpretive Data was last revised on 2018. Monocyte pct 6.6 % [facility] Comment: Interpretive Data Percent cell count reference ranges are not reported, since discordance with absolute values may lead to misinterpretation of CBC data. Current Interpretive Data was last revised on 2018. Eosinophil pct 1.0 % [facility] Comment: Interpretive Data Percent cell count reference ranges are not reported, since discordance with absolute values may lead to misinterpretation of CBC data. Current Interpretive Data was last revised on 2018. Basophil pct 0.5 % [facility] Comment: Interpretive Data Percent cell count reference ranges are not reported, since discordance with absolute values may lead to misinterpretation of CBC data. Current Interpretive Data was last revised on 2018. Blood 02/17/2025 5:23 PM CDT 02/17/2025 6:01 PM CDT Nilay Calabrese MD LAB BLOOD ORDERABLES F inal Result [facility] Department [place] [address] * CPAP aPTT algorithm (02/17/2025 5:23 PM CDT) aPTT 35 28 - 38 sec Comment: Interpretive Data Heparin therapeutic range: 66.0 - 100.0 seconds. Range based on correlation with therapeutic heparin activity range of 0.3 - 0.7 Units/mL. Current interpretive data was last revised on 2023. Blood 02/17/2025 5:23 PM CDT 02/17/2025 5:23 PM CDT us Umu Gimenez CROP PULLER LAB BLOOD ORDERABLES Fi nal Result Performing Organization Address [facility]/ZIP Co de Phone Number [facility] Department [place] [address] * CBC with auto differential (02/17/2025 5:23 PM CDT) WBC 5.87 3.80 - 9.90 K/cumm Hgb 14.9 11.9 - 15.5 g/dL [facility] Hct 45.2 35.6 - 45.5 % [facility] Plt 237 150 - 400 K/cumm [facility] MPV 9.7 9.1 - 12.3 fL [facility] RBC 4.96 3.90 - 5.20 M/cumm [facility] MCV 91.1 81.3 - 96.4 fL [facility] MCH 30.0 27.1 - 33.3 pg [facility] MCHC 33.0 32.3 - 35.7 g/dL [facility] RDW CV 12.7 11.1 - 14.9 % [facility] RDW SD 41.9 35.7 - 48.1 fL [facility] NRBC abs 0.00 0.00 - 0.01 K/cumm [facility] Blood 02/17/2025 5:23 PM CDT 02/17/2025 6:01 PM CDT Narrative [facility] - 02/17/2025 6:09 PM CDT CPAP ORDER Nilay Calabrese MD LAB BLOOD ORDERABLES F inal Result [facility] Department [place] [address] * Protime-INR (02/17/2025 5:23 PM CDT) PT 10.8 9.7 - 13.0 sec INR 1.00 0.90 - 1.20 [facility] Comment: Interpretive data Oral anticoagulant therapeutic ranges: Venous thromboembolism prophylaxis or treatment: 2.0-3.0 CARDIOLOGY Standard range: 2.0-3.0 High-intensity range: 2.5-3.5 Refer to indication-specific guidelines for appropriate target ranges for prosthetic heart valve replacement. Current interpretive data was last revised on 2019. Blood 02/17/2025 5:23 PM CDT 02/17/2025 5:23 PM CDT Narrative [facility] - 02/17/2025 6:05 PM CDT CPAP ORDER Nilay Calabrese MD LAB BLOOD ORDERABLES F inal Result [facility] Department [place] [address] * Basic metabolic panel (02/17/2025 5:23 PM CDT) Sodium 145 135 - 145 mmol/L Potassium, pl 4.1 3.3 - 4.9 mmol/L [facility] Chloride 108 97 - 110 mmol/L [facility] CO2 30 22 - 32 mmol/L [facility] Anion gap 7 2 - 15 mmol/L [facility] BUN 18 6 - 25 mg/dL [facility] Creatinine 1.01 0.60 - 1.10 mg/dL [facility] Glucose 97 70 - 199 mg/dL [facility] Comment: Interpretive Data Fasting glucose >/= [...] 2022. Calcium 9.3 8.5 - 10.3 mg/dL [facility] Blood 02/17/2025 5:23 PM CDT 02/17/2025 6:01 PM CDT Narrative [facility] - 02/17/2025 6:30 PM CDT CPAP ORDER Has the patient fasted?->No us Nilay Calabrese MD LAB BLOOD ORDERABLES F inal Result [facility] Department [place] [address] from Last 3 Months Insurance [facility] Advance Directives For more information, please contact: [phone] * Full Code (Latest Code Status on File) Date Activated Date Inactivated Comments 04/14/2025 10:42 AM 04/15/2025 4:44 AM * Full Code Date Activated Date Inactivated Comments 02/22/2025 7:12 AM 02/23/2025 4:46 AM * Full Code Date Activated Date Inactivated Comments 12/26/2024 2:32 AM 12/31/2024 3:16 PM * Full Code Date Activated Date Inactivated Comments 12/26/2024 2:22 AM 12/26/2024 2:32 AM Care Teams Lawn Sprinkler Installer Relationship Specialty Start Date End Date Gallo Santoyo MD [address] [facility] [address] [place] [address] PCP - General Family Medicine 09/29/24
--- OUTSIDE RECORDS SUMMARY | 2025-05-08 07:12 | XMS_ITS | Clinical Summary ---
Author Organization [facility] Address [address] [place] [address] Care Team Providers Care Design Verification Engineer Name Role Phone Unavailable Primary Care Provider Unavailabl e Source Comments [facility],non-owned Affiliates and Associated Physician Practices is amultiple site organization consisting of ambulatory clinics and hospital sitesin [place], [place], [place] and [place]. This disclosure is being madepursuant to the Care Everywhere program and may not contain all information available regarding this patient. 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 Gender Identity Not on file Sexual Orientation Not on file Plan of Treatment Health Maintenance Due Date Last Done Comments COLOGUARD (AGES 45-75) - COL ON CA SCREENING 1965 COLON MONITORING 1965 COLONOSCOPY - COLON CA SCREENING 1965 CT COLONOGRAPHY - COLON CA SCREENING 1965 Colorectal Cancer Screening 1965 FIT - COLON CA SCREENING 1965 FLEX SIG - COLON CA SCREENING 1965 LIPID TESTING 1965 MAMMOGRAM 1965 HIV SCREENING 1980 HEPATITIS C SCREENING 06/04/1983 DTAP/TDAP/TD VACCINES (1 - Tdap) 1984 HEPATITIS B VACCINE (1 of 3 - 19+ 3-dose series) 1984 PNEUMOCOCCAL VACCINE 50+ (1 of 1 - PCV) 2015 ZOSTER VACCINE (1 of 2) 2015 COVID-19 VACCINE ( - 2023-2 5 season) 2024 DEPRESSION SCREENING 10/26/2024 INFLUENZA VACCINE (#1) 2025 HIB VACCINE Aged Out No longer eligi ble based on patient's age to complete this topic HPV VACCINE Aged Out No longer eligi ble based on patient's age to complete this topic MENINGOCOCCAL (Group B) VACC INE SHARED DECISION-MAKING Aged Out No longer eligibl e based on patient's age to complete this topic MENINGOCOCCAL GROUPS A/C/Y/W VACCINE Aged Out No longer eligible b ased on patient's age to complete this topic Insurance [facility]
[2025-05-08 07:37] LABS: Hematocrit 45.4 % (37.0-47.0); Hemoglobin 14.7 g/dL (12.0-15.0); Mean Corpuscular HGB Conc 32.4 g/dl (32-36); Mean Corpuscular Hemoglobin 30.0 pg (26-34); Mean Corpuscular Volume 92.7 fl (80-100); Platelet Count Result 209 k/mm3 (150-375); Red Blood Count 4.90 M/mm3 (4.2-5.4); White Blood Count 4.4 K/mm3 (4.5-10.0)
[2025-05-08 07:48] LABS: Add Urine Microscopic? NO; Appearance Urine Clear (Clear); Glucose Urine UA Negative (Negative); Leukocyte Esterase Ur Negative LEU/UL (Negative); Nitrate Urine Negative (Negative); Specific Grav Ur 1.015 (1.001-1.035)
[2025-05-08 07:55] LABS: Alanine Aminotransferase 35 U/L (6-35); Albumin Level 3.6 g/dL (3.5-5.1); Alkaline Phosphatase 61 U/L (38-126); Anion Gap 5 mmol/L (4-12); Aspartate Amino Transferase 40 U/L (14-36); Bilirubin,Total 0.6 mg/dL (0.2-1.3); Blood Urea Nitrogen 16 mg/dL (7-17); Calcium 9.1 mg/dL (8.4-10.2); Carbon Dioxide 28 mmol/L (22-30); Chloride 108 mmol/L (98-107); Cholesterol 221 mg/dL (0-200); Estimated Glomerular Filt Rate > 60; Glucose 88 mg/dL (65-110); HDL Direct 82 mg/dL; Potassium 4.0 mmol/L (3.4-5.0); Sodium 141 mmol/L (137-145); Total Protein 6.5 g/dL (6.3-8.2); Triglycerides 50 mg/dL (<150)
[2025-05-08 08:31] LABS: Thyroid Stimulating Hormone 2.490 uIU/mL (0.465-4.680)
== END 2025-05-08 07:09 | disposition home or self-care (01) ==
LOC: ANHLAB 07:10
PROVIDERS: PCP Family Medicine; Visit Provider Family Medicine
DX: E78.5 Hyperlipidemia, unspecified (principal); Z00.00 Encounter for general adult medical examination without abnormal findings; R53.83 Other fatigue
CPT/HCPCS: 36415; 80053; 80061; 81003; 84443; 85027